=== PATIENT | male | born 1985 | race Caucasian/White ===

== ENCOUNTER 2021-01-19 16:11 | Inpatient (IN) ==
[2021-01-19] MEDS ORDERED: SODIUM CHLORIDE 0.9% 500 ML IV STA (16:29)
[2021-01-19 16:41] LABS: Basophils # (auto) 0.02 K/uL (0-0.2); Basophils % (auto) 0.1 %; Eosinophils # (auto) 0.11 K/uL (0-0.5); Eosinophils % (auto) 0.5 %; Hematocrit (blood only) 43.3 % (42-52); Hemoglobin 15.4 g/dL (14.0-18.0); Immature Granulocytes # (auto) 0.05 K/uL (0.00-0.02); Immature Granulocytes % (auto) 0.2 %; Lymphocytes # (auto) 2.77 K/uL (1.2-3.4); Lymphocytes % (auto) 12.4 %; Mean Corpuscular Hemoglobin 31.2 pg (25-34); Mean Corpuscular Hgb Conc 35.6 g/dL (32-36); Mean Corpuscular Volume 87.8 fL (80-100); Mean Platelet Volume 10.3 fL (7.4-10.4); Monocytes # (auto) 1.29 K/uL (0.11-0.59); Monocytes % (auto) 5.8 %; Neutrophils # (auto) 18.08 K/uL (1.4-6.5); Platelet Count 302 K/uL (130-400); RDW Coefficient of Variation 12.9 % (11.5-14.5); RDW Standard Deviation 41.3 fL (36.4-46.3); Red Blood Count 4.93 M/uL (4.7-6.1); White Blood Count 22.32 K/uL (4.8-10.8)
--- NOTE | 2021-01-19 16:48 | XRay Report ---
XR chest 1V portable HISTORY: weakness COMPARISON: None. FINDINGS: The lungs are clear. Cardiac silhouette is normal in size. No pleural effusions. No pneumot horax. IMPRESSION: No acute process. ACT 112: Negative or not required by law. Electronically signed by: Juancarlos Huerta M.D. 01/19/2021 4:47 PM
[2021-01-19 17:02] LABS: Alanine Aminotransferase 65 U/L (12-78); Albumin Level 4.3 gm/dl (3.4-5.0); Aspartate Aminotransferase 31 U/L (15-37); BUN Creatinine Ratio 9.4 (10-20); Blood Urea Nitrogen 8 mg/dl (7-18); Carbon Dioxide 28 mmol/L (21-32); Chloride 100 mmol/L (98-107); Est GFR (African American) 130.8 ml/min; Est GFR (Non-African American) 112.9 ml/min; Glucose 116 mg/dl (70-99); Potassium 3.3 mmol/L (3.5-5.1); Sodium 133 mmol/L (136-145)
[2021-01-19 17:12] LABS: Albumin Globulin Ratio 1.1 (0.9-2); Alkaline Phosphatase 82 U/L (45-117); Bilirubin,Total 0.9 mg/dl (0.2-1); Globulin 3.8 gm/dl (2.5-4.0); Total Protein 8.1 gm/dl (6.4-8.2); Troponin I < 0.015 ng/ml (0-0.045)
[2021-01-19] MEDS ORDERED: OPTIRAY 320 125ml IV ONE (17:24)
[2021-01-19 17:33] LABS: Creatine Kinase 138 U/L (39-308)
[2021-01-19 17:41] LABS: Appearance Urine Clear (Clear); Bilirubin Urine Negative (Negative); Blood Urine Negative (Negative); Color Urine Yellow; Glucose Urine UA Negative (Negative); Ketones Urine Trace (Negative); Leukocyte Esterase Urine Negative (Negative); Nitrite Urine Negative (Negative); Protein Urine Negative (Negative); Specific Gravity Urine 1.026 (1.000-1.030); Urobilinogen Urine Negative (Negative)
--- NOTE | 2021-01-19 17:41 | CT Scan Report ---
CHEST CTA for PULMONARY ARTERIES CT DOSE: 546.36 mGycm HISTORY: Syncope. Evaluate for pulmonary embolus. TECHNIQUE: Multiaxial CT images of the chest were performed following the intravenous administration of contrast to evaluate the pulmonary arteries. Maximal intensity projection images were also obtaine d. A dose lowering technique was utilized adhering to the principles of ALARA. COMPARISON STUDY: None. FINDINGS: There is a normal caliber thoracic aorta with no evidence for dissection. There is no evide nce for pulmonary embolus. No pleural effusions. No pneumothorax. The liver and spleen are unremarkab le. No mediastinal or hilar lymphadenopathy. Trace mucoid material within the trachea. Mild bronchial wall thickening most pronounced within the lower lobes. The lungs are clear. IMPRESSION: 1. No evidence for pulmonary embolus. 2. Mild bronchial wall thickening. This could represent a mild bronchitis or reactive airways disease . ACT 112: Negative or not required by law. Electronically signed by: Juancarlos Huerta M.D. 01/19/2021 5:39 PM
[2021-01-19 18:13] LABS: Amphetamines+Metham, Urine Neg (Neg); Barbiturates, Urine Neg (Neg); Benzodiazepine, Urine Neg (Neg); Cocaine, Urine Neg (Neg); MDMA (Ecstacy), Urine Neg (Neg); Methadone, Urine Neg (Neg); Opiate, Urine Neg (Neg); Phencyclidine, Urine Neg (Neg)
[2021-01-19] MEDS ORDERED: LABETALOL HCL IV 5 MG/ML 20ML IV STA (19:42)
[2021-01-19] MEDS ORDERED: LORazepam 2 MG/ML VIAL (IM USE) ONE (19:47)
[2021-01-19] MEDS ORDERED: LORazepam 2 MG/4 ML VIAL IV STA (19:48)
[2021-01-19] MEDS ORDERED: levETIRAcetam 1,000 MG in 0.9 % SODIUM CHLORIDE 100 ML IV STA (19:48)
--- NOTE | 2021-01-19 19:50 | History & Physical Report ---
Date of Service January 19, 2021 Assessment & Plan (1) Witnessed seizure-like activity: Plan: 35 y/o male w/ no PMHx who presents w/ new onset 4 episodes (3 witnessed) tonic- clonic seizure-like vs syncope activity today. He works outdoors in a park- setting and has risk-factors for tick-borne illness. No prior or family hx of seizure or sudden cardiac . He likely has some element of dehydration given his busy outdoors work schedule in the past 2 days. - Elevated wbc to 22.32 in setting of park job would be concerning for systemic tick-borne infection. Considered lyme and ictal bradycardia. Also considered vasovagal syncope / arrhythmia. Lower suspicion for arrhythmia. - elevated wbc less likely solely from seizure-like activity given degree of elevation. lower suspicion from hemoconcentration - Lower suspicion for meningitis w/ lack of neck pain, AMS, neg Brudzinski/Kernig exams. Lower suspicion psychogenic - Monitor on telemetry. Seizure precautions. Trend trop. Check orthostatics. Check procalc for sepsis. Check blood cultures. CK pending. - Endorses daily marijuana use. Lower suspicion for unintentional substances. - less likely hypoxic, saturating well on room air, no resp distress - Lower suspicion for chemical/environmental exposures - ordered additional 1L NSS bolus - Considered LP, but deferred given lower suspicion for meningitis; well appearing, afebrile. Waiting for prelim serum tick-borne studies - eeg in AM - stat mri now to r/o structural lesion - consult neuro in AM. Ed started Keppra load. I ordered 500 mg IV Keppra q12h and will defer to neuro regarding continuation. (2) Hypokalemia: Plan: - repleting. follow metabolic panel (3) Hyponatremia: Plan: - likely 2/2 dehydration. f/u metabolic panel in AM Plan: FEN/GI: regular diet ppx: SCDs code: full dispo: pcu Neg covid. Not covid immunizaed. History of Present Illness Chief Complaint: seizure-like activity. Primary Care Provider: NO PCP Houston Pulliam is a 35 y/o male w/ no PMHx who presents w/ new onset several episodes of syncopal vs presyncopal vs seizure-like episodes w/ tonic-clonic type activity. He works as a park/outdoors educator/guide. This morning he was kayaking and bike riding with customers in the park. After he finished the tour, he walked back to his truck and had an episode of LOC where he woke up on the floor of his truck. Patient then returned to the office and resumed his regular job duties. In the afternoon, his coworkers noted that the patient had an episode of tonic-clonic type activity and unresponsiveness, so they brought him in to the ED. In the ED waiting room ~430pm, patient had an episode of near- syncope per nursing. At 750pm, patient had a 30 second episode of witnessed tonic-clonic type activity with eyes rolled back and unresponsiveness to stimuli. Patient was not aware he had seizure-like activity and thought the 4 episodes were near-syncope. Denies prodromal or post-ictal symptoms. Patient had some fatigue earlier in the day. In the ED waiting room, he had nausea, moderate fatigue, and was noted by girlfriend to appear clammy. Patient denies recent i llness or infection. Denies tick bites. Denies prior hx of similar. No family hx of seizures. Denies any substance use. 1-3 beers at night. GF denies any withdrawal symptoms from etoh. Denies fhx sz, sudden cardiac . Work has been stressful. Denies hx of anxiety and depression. Patient was outdoors today, but states he ate breakfast and stayed hydrated. Girlfriend notes that patient has been eating fresh hot peppers several times/wk x several wks. At the time of my interview, mildly sedated s/p Keppra and Ativan and requiring mild reprompting during interview. He states that he currently feels better and essentially at baseline and no longer has the fatigue or clamminess he felt earlier. Update: 845pm: brief episode of eyes rolled back and emmanuel'd down to 40s for a few seconds, returned to normal w/ stimuli. Rhythm strip reviewed. HPI obtained from patient and girlfriend at bedside and slightly limited because of patient's slight inattention which girlfriend attributes to drowsiness after medications (Keppra and Ativan). No PCP. Drowsiness resolved on reexamination. ED course: 2mg IVP lorazepam ordered. Keppra 1000mg IV ordered. Labetalol 10 mg IV. NSS 500mL. Head CT neg for acute findings. Chest CTA neg for PE. ECG w/ NSR 92. Allergies Allergy/AdvReac Type Severity Reaction Status Date / Time No Known Allergies Allergy Unknown UNKNOWN Unverified 01/20/21 07:21 Home Medications Medication Instructions Recorded Confirmed Type melatonin 5 mg tablet 5 - 10 mg PO HS PRN 01/19/21 01/19/21 History levetiracetam 500 mg tablet 500 mg PO BID #60 tab 01/20/21 Rx Past Med/Surg History Social History Smoking Status: Former smoker Second Hand Exposure: No; Hx Alcohol Use: Yes Alcohol type: beer Hx Substance Use: Yes Last Used Substance: Days (ago) Last Used Substance Other:: Patient states "last evening" Preferred Language: Lao Communication Ability: Effective Laboratory Worker Required: No Beliefs That Will Affect Care: None Current Living Situation: Significant Other Feels Safe at Home: Yes Assistive Devices: None Review of Systems Review of Systems: All systems reviewed & are unremarkable except as noted in HPI & below Constitutional: Denies fever, chills. + mild fatigue, improve Eyes: Denies blurry vision, vision changes ENT: Denies sore throat, sinus pain Cardiovascular: Denies chest pain, palpitations Respiratory: Denies shortness of breath Gastrointestinal: Denies abdominal pain, vomiting, constipation, diarrhea Genitourinary: Denies urinary symptoms including dysuria Musculoskeletal: Denies weakness, muscle aches/pain, joint aches/pain Neurological: Denies headache, numbness, tingling, focal weakness Integ: Denies tick bites or rashes. Physical Exam Physical Exam: General: Grossly A&O. NAD. Cooperative. HEENT: Atraumatic, normocephalic. EOMI. PERRL. Nekc is supple. No pain w/ palpation of posterior neck. Oropharynx wnl. Mild R tongue edge bite nelly. Pulm: CTAB. -wheezes, -rales, -rhonchi. No respiratory distress. Cardiac: RRR, -mrg. Radial pulses intact and symmetrical. Abdominal: Nontender, nondistended, soft. Neuro: Normal finger to nose. CN II-XII intact. Normal strength and sensation of extremities. Neg Kernig/Brudzinski. Integ: Small bruise at left chand. No visible rash. Results & Data Results & Data ([facility]) Vital Signs (Past 12 Hours) Vital Signs tachy to 120s, 130s last few hours. 90s at ED arrival. BP 170s/100s at arrival, lowered to 128/96 s/p labetalol 10. Temp Pulse Pulse Resp BP BP Pulse Ox 01/19/21 17:02 96 H 18 178/102 H 100 01/19/21 17:00 97 H 20 170/92 H 95 01/19/21 16:34 95 H 16 164/104 H 98 01/19/21 16:15 36.8 C 71 16 174/92 H 97 Laboratory Results wbc 22.32H. Hb 15.4 wnl. sig neutrophilia 18.08. Na 133. K 3.3. Cr 0.85 wnl. trop neg x1. Neg liver panel. tsh wnl. Trace ketones on UA. Pos MJ on utox. final utox pending, but prelim neg. chest cta neg for PE. + mild bronchial wall thickening. cxr neg. Cardiac Enzymes 01/19/21 Range/Units 16:22 AST 31 (15-37) U/L Troponin I < 0.015 (0-0.045) ng/ml CBC 01/19/21 Range/Units 16:22 WBC 22.32 H (4.8-10.8) K/uL RBC 4.93 (4.7-6.1) M/uL Hgb 15.4 (14.0-18.0) g/dL Hct 43.3 (42-52) % Plt Count 302 (130-400) K/uL Neut # (Auto) 18.08 H (1.4-6.5) K/uL Lymph # (Auto) 2.77 (1.2-3.4) K/uL [place] # (Auto) 1.29 H (0.11-0.59) K/uL Eos # (Auto) 0.11 (0-0.5) K/uL Baso # (Auto) 0.02 (0-0.2) K/uL Comprehensive Metabolic Panel 01/19/21 Range/Units 16:22 Sodium 133 L (136-145) mmol/L Potassium 3.3 L (3.5-5.1) mmol/L Chloride 100 (98-107) mmol/L Carbon Dioxide 28 (21-32) mmol/L BUN 8 (7-18) mg/dl Creatinine 0.85 (0.6-1.4) mg/dl Glucose 116 H (70-99) mg/dl Calcium 9.0 (8.5-10.1) mg/dl AST 31 (15-37) U/L ALT 65 (12-78) U/L Alkaline Phosphatase 82 (45-117) U/L Total Protein 8.1 (6.4-8.2) gm/dl Albumin 4.3 (3.4-5.0) gm/dl Intake and Output 01/19/21 01/19/21 01/19/21 06:59 14:59 22:59 Intake Total 500 / 500 Balance 500 / 500 Intake: IV 500 / 500 Sodium Chloride 0.9% 500 ml @ 500 / 500 999 mls/hr IV .Q31M STA Rx#: [id number] Other: Weight 86.9 kg Weight Measurement Method Chair Scale Patient Weight 01/20/21 06:59 Weight 86.9 kg Diagnostic Findings Chest X-Ray 01/19/21 16:29 XR chest 1V portable HISTORY: weakness COMPARISON: None. FINDINGS: The lungs are clear. Cardiac silhouette is normal in size. No pleural effusions. No pneumothorax. IMPRESSION: No acute process. ACT 112: Negative or not required by law. Electronically signed by: Juancarlos Huerta M.D. 01/19/2021 4:47 PM Chest CTA 01/19/21 16:59 CHEST CTA for PULMONARY ARTERIES CT DOSE: 546.36 mGycm HISTORY: Syncope. Evaluate for pulmonary embolus. TECHNIQUE: Multiaxial CT images of the chest were performed following the intravenous administration of contrast to evaluate the pulmonary arteries. Maximal intensity projection images were also obtained. A dose lowering technique was utilized adhering to the principles of ALARA. COMPARISON STUDY: None. FINDINGS: There is a normal caliber thoracic aorta with no evidence for dissection. There is no evidence for pulmonary embolus. No pleural effusions. No pneumothorax. The liver and spleen are unremarkable. No mediastinal or hilar lymphadenopathy. Trace mucoid material within the trachea. Mild bronchial wall thickening most pronounced within the lower lobes. The lungs are clear. IMPRESSION: 1. No evidence for pulmonary embolus. 2. Mild bronchial wall thickening. This could represent a mild bronchitis or reactive airways disease. ACT 112: Negative or not required by law. Electronically signed by: Juancarlos Huerta M.D. 01/19/2021 5:39 PM ECG Additional Comments: Interpreted by me. NSR w/ sinus arrhythmia. Rate 89. Normal intervals and axis. Formal read pending. Possible incomplete RBBB, but morphology only partially suggestive. Code Status & VTE Plan Code Status full VTE Prophylaxis Plan VTE Prophylaxis will be ordered: Yes Reason for no VTE drug order: Treatment not indicated Supervising Physician Co-Signing Physician Notes Attending addendum: I have physically seen this patient, have supervised the medical residents activities, and agree with the H&P unless as otherwise noted. Assessment and Plan: Seizure-like activity- A total of 4 episodes noted and witnessed Telemetry mission CT head negative Order MRI brain and EEG Seizure precautions Given Keppra 1 g IV in the ED, and will continue 500 milligrams IV daily Consult neurology Mild hyponatremia/hypokalemia- IV fluids. Repeat laboratories in a.m. Remaining orders and notations as noted Resident Activity Tracking Resident Involvement: Resident Care Provided Care Provided: Adult Hospital Medicine
--- NOTE | 2021-01-19 21:05 | CT Scan Report ---
HEAD CT NONCONTRAST CT DOSE: 537.48 mGy.cm HISTORY: seizure TECHNIQUE: Multiaxial CT images of the head were performed without the use of intravenous contrast. A utomated exposure control was utilized for this study. A dose lowering technique was utilized adheri ng to the principles of ALARA. Comparison: None. Findings: The paranasal sinuses and mastoid air cells are clear. The calvarium and skull base are int act. The ventricles and sulci are within normal limits. There is no mass, hematoma, midline shift, or acute infarct. Impression: No acute intracranial abnormality. ACT 112: Negative or not required by law. Electronically signed by: Juancarlos Huerta M.D. 01/19/2021 9:04 PM
[2021-01-19] MEDS ORDERED: SODIUM CHLORIDE 0.9% 1000ML 1,000 ML IV STA (21:22)
[2021-01-19 21:39] LABS: Lyme Ab IgG w/WB Rflx Negative (Negative); Lyme Ab IgM w/WB Rflx Negative (Negative)
[2021-01-19] MEDS ORDERED: POTASSIUM CHLORIDE 20 MEQ/15 ML UDC PO STA (22:06)
[2021-01-19] MEDS ORDERED: POTASSIUM CHLORIDE 20 MEQ/15 ML UDC ONE (22:10)
[2021-01-20] MEDS ORDERED: ACETAMINOPHEN 325 MG TAB PO PRN (00:32)
[2021-01-20] MEDS ORDERED: POLYETHYLENE (MIRALAX) 17 GM PACK PO PRN (00:32)
[2021-01-20] MEDS ORDERED: ONDANSETRON INJ 2 MG/ML 2 ML VIAL IV PRN (00:32)
[2021-01-20 06:13] LABS: Basophils # (auto) 0.01 K/uL (0-0.2); Basophils % (auto) 0.1 %; Eosinophils # (auto) 0.05 K/uL (0-0.5); Eosinophils % (auto) 0.4 %; Hematocrit (blood only) 39.6 % (42-52); Hemoglobin 13.8 g/dL (14.0-18.0); Immature Granulocytes # (auto) 0.02 K/uL (0.00-0.02); Immature Granulocytes % (auto) 0.2 %; Lymphocytes # (auto) 2.29 K/uL (1.2-3.4); Lymphocytes % (auto) 20.3 %; Mean Corpuscular Hemoglobin 30.9 pg (25-34); Mean Corpuscular Hgb Conc 34.8 g/dL (32-36); Mean Corpuscular Volume 88.6 fL (80-100); Mean Platelet Volume 10.2 fL (7.4-10.4); Monocytes % (auto) 8.9 %; Neutrophils % (auto) 70.1 %; Platelet Count 242 K/uL (130-400); RDW Coefficient of Variation 12.8 % (11.5-14.5); RDW Standard Deviation 41.2 fL (36.4-46.3); Red Blood Count 4.47 M/uL (4.7-6.1); White Blood Count 11.27 K/uL (4.8-10.8)
[2021-01-20 06:34] LABS: Albumin Level 3.3 gm/dl (3.4-5.0); BUN Creatinine Ratio 5.8 (10-20); Bilirubin,Total 1.3 mg/dl (0.2-1); Calcium 8.4 mg/dl (8.5-10.1); Creatinine Clr Calc Pharmacy 156.8 ml/min; Est GFR (African American) 135.5 ml/min; Est GFR (Non-African American) 116.9 ml/min; Globulin 3.5 gm/dl (2.5-4.0); Magnesium 2.1 mg/dl (1.8-2.4); Phosphorus 2.3 mg/dl (2.5-4.9); Potassium 3.7 mmol/L (3.5-5.1); Total Protein 6.8 gm/dl (6.4-8.2)
[2021-01-20] MEDS ORDERED: POTASSIUM PHOS 3 MMOL/1 ML INFUSION IV STA (07:00)
--- NOTE | 2021-01-20 07:26 | Magnetic Resonance Report ---
MRI OF THE BRAIN WITHOUT IV CONTRAST CLINICAL HISTORY: Seizure like activity. COMPARISON STUDY: CT of the brain dated 01/19/2021. TECHNIQUE: MRI of the brain was performed utilizing various T1 and T2-weighted sequences in the axial , sagittal, and coronal planes. IV contrast was not administered for this examination. The examinatio n is performed using the seizure protocol. FINDINGS: Brain parenchyma: The brain parenchyma is normal in appearance. There is no hemorrhage or mass effect . There is no restricted diffusion to suggest acute ischemia. El-white matter differentiation is pr eserved. No extra-axial fluid collection is seen. The cerebellar tonsils are normal in configuration. The hippocampi appear normal and symmetric. Ventricles, sulci, and cisterns: Normal in configuration. Pituitary and sella: Unremarkable. Intracranial vasculature: Normal flow voids are maintained at the skull base. Orbits: The bony orbits are grossly intact. Orbital contents are normal in appearance. Sinuses and mastoids: Clear. Calvarium: Unremarkable. Cervical cord: Partially visualized cervical spinal cord is normal in morphology and signal intensity . IMPRESSION: No intracranial abnormality is identified. ACT 112: Negative or not required by law. Electronically signed by: Perry Clayton M.D. 01/20/2021 7:24 AM
[2021-01-20] MEDS ORDERED: POTASSIUM PHOSPHATE 15 MMOL in SODIUM CHLORIDE 0.9% 250 ML IV ONE (07:30)
[2021-01-20] MEDS ORDERED: levETIRAcetam 500 MG in 0.9 % SODIUM CHLORIDE 100 ML IV SCH (09:00)
--- NOTE | 2021-01-20 09:39 | Electroencephalogram ---
EEG Procedure Note Date of Service January 20, 2021 Start / End Times Start Time: 0804 End Time: 823 Referring Physician Pankaj Wang MD History 35-year-old with history of Several witnessed seizure-like activity events January 19. Home Medication List Medication Instructions Recorded Confirmed Type None (Patient States No Home Meds) #0 07/28/08 History melatonin 5 mg tablet 5 - 10 mg PO HS PRN 01/19/21 01/19/21 History Inpatient Medication List Levetiracetam 500 mg/ Sodium (Chloride) 105 mls @ 440 mls/hr IV Q12H CARINE Stop: 02/19/21 08:59 Last Infusion: 01/20/21 08:00 Dose: 0 mls/hr Documented by: [id number] Admin: 01/20/21 07:44 Dose: 440 mls/hr Documented by: [id number] Potassium Phosphate 15 mmol/ (Sodium Chloride) 255 mls @ 102 mls/hr IV ONE ONE Stop: 01/20/21 09:59 Last Admin: 01/20/21 08:29 Dose: 102 mls/hr Documented by: [id number] Discontinued Medications Sodium Chloride (Nss) 500 mls @ 999 mls/hr IV .Q31M STA Stop: 01/19/21 16:59 Last Infusion: 01/19/21 16:58 Dose: 0 mls/hr Documented by: [id number] Admin: 01/19/21 16:40 Dose: 999 mls/hr Documented by: [id number] Lorazepam (Ativan) 2 mg in 4 mls @ 4 mls/min IV NOW STA Stop: 01/19/21 19:49 Last Admin: 01/19/21 19:50 Dose: 4 mls/min Documented by: [id number] Levetiracetam 1,000 mg/ Sodium (Chloride) 110 mls @ 440 mls/hr IV NOW STA Stop: 01/19/21 20:02 Last Infusion: 01/19/21 20:55 Dose: 0 mls/hr Documented by: [id number] Admin: 01/19/21 20:40 Dose: 440 mls/hr Documented by: [id number] Sodium Chloride (Nss 1000ml) 1,000 mls @ 999 mls/hr IV .Q1H1M STA Stop: 01/19/21 22:22 Last Infusion: 01/19/21 22:43 Dose: 0 mls/hr Documented by: [id number] Admin: 01/19/21 21:27 Dose: 999 mls/hr Documented by: [id number] Ioversol (Optiray 320 125ml) 114 ml IV ONCE ONE Stop: 01/19/21 17:25 Last Admin: 01/19/21 17:25 Dose: 1 ml Documented by: [id number] Labetalol HCl (Labetalol Hcl Iv 5 Mg/Ml 20ml) 10 mg IV NOW STA Stop: 01/19/21 19:43 Last Admin: 01/19/21 20:04 Dose: Not Given Documented by: [id number] Lorazepam (Lorazepam 2 Mg/Ml Vial (Im Use)) Confirm Administered Dose 2 mg .ROUTE .STK-MED ONE Stop: 01/19/21 19:48 Last Admin: 01/19/21 19:51 Dose: Not Given Documented by: [id number] Potassium Chloride (Potassium Chloride 20 Meq/15 Ml Udc) 40 meq PO NOW STA Stop: 01/19/21 22:07 Last Admin: 01/19/21 22:17 Dose: 40 meq Documented by: [id number] Potassium Chloride (Potassium Chloride 20 Meq/15 Ml Udc) Confirm Administered Dose 40 meq .ROUTE .STK-MED ONE Stop: 01/19/21 22:11 Last Admin: 01/19/21 22:17 Dose: Not Given Documented by: [id number] Description This is a 21 electrode EEG with a single channel dedicated to limited EKG. The electrodes were placed in accordance with the International 10-20 system. Interpretation The predominant background activity consists of a somewhat irregular modulated 10 Hz activity, of up to 30 mV in amplitude,seen symmetrically distributed over the posterior head regions bilaterally. This activity attenuates nicely with eye-opening and other alerting procedures. Photic stimulation was performed and elicited no change in the background activity and no abnormal responses were seen. Hyperventilation was not performed. A considerable amount of muscle and movement artifact activity contaminated the recording and occasionally hindered interpretation from time to time throughout the recording. Throughout the waking portion of the recording, no focal abnormalities, abnormal slow activity, or potentially epileptogenic discharges are seen. The patient did not enter the drowsy state or sleep. In summary, this EEG was normal during wakefulness. No focal abnormalities, po tentially epileptogenic discharges, or abnormal slow activity was seen. Clinical Correlation The abscence of potentially epileptogenic activity does not exclude a seizure disorder, since interictally, EEGs can be normal. Clinical correlation is required. [facility] EEG Procedure Codes Indication for Procedure (1) Witnessed seizure-like activity: Neurology Neurology: [id number] EEG include record awake & drowsy
--- NOTE | 2021-01-20 09:57 | Electrocardiogram Report ---
Test Reason : Blood Pressure : / mmHG Vent. Rate : 089 BPM Atrial Rate : 089 BPM P-R Int : 116 ms QRS Dur : 098 ms QT Int : 348 ms P-R-T Axes : 070 069 048 degrees QTc Int : 423 ms Normal sinus rhythm with sinus arrhythmia Incomplete right bundle branch block Borderline ECG No previous ECGs available Confirmed by Mateus Sarmiento ([id number]) on 01/20/2021 9:57:02 AM Referred By: REFERRED SELF Confirmed By:Mateus Sarmiento
--- NOTE | 2021-01-20 10:12 | Neurology Consultation ---
Date of Consultation January 20, 2021 Assessment & Plan (1) Witnessed seizure-like activity: Patient had multiple episodes yesterday consisting of near syncope, syncope, and seizure-like activity. He had warning symptoms of feeling hot, sweaty, and lightheaded. There were concerns about bradycardia prior to 1 event last evening. MRI of the brain was unremarkable and EEG showed no abnormalities either. He had some minor electrolyte imbalances which were corrected today. I do not be lieve these were significant enough to cause primary seizures. The patient was extremely physically active over the last 48 hours and not eating or drinking well during this time ( particularly the morning of January 19). This could have created stress to trigger these events. I am not convinced these represent primary epilepsy. I am more concerned about secondary seizures from cardiovascular changes. patient uses marijuana intermittently but this is not typically associated with seizure activity. Recommendations: 1. For now, continue levetiracetam 500 mg, twice a day. 2. Consider cardiology consult. 3. Otherwise I would follow up as an outpatient and make additional recommendations pending his clinical course. Continue emphasizing increasing fluids and eating correctly as well as proper sleep. Overall, I spent a total of 60 minutes with this case including review of records, review of MRI films, did direct evaluation the patient at bedside, and discussion of the case with the patient at bedside and Dr. Basilio including differential diagnosis and treatment options. History of Present Illness Reason for Consultation: Patient is a 35-year-old, who I was asked to see the request of Dr. Wang, for neurologic consultation regarding seizure activity. Requesting Physician: Dr. Wang Attending Physician: Maddie Basilio MD History of Present Illness this patient has no significant medical or surgical issues in his past medical history and he was on no medication. He has no prior history epilepsy or previous seizures/syncope. He states that once, over 10 years ago, while in college, he was very tired /is exhausted without eating much food a particular day and had a syncopal event without seizure activity. He knows nothing further about this. 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 He was hiking and bike riding. He has not been eating well the last couple of days also. Yesterday, he spent all morning doing the physical activities for these potential commercials. by 04/03/1999, when he finished he was very tired and felt dehydrated. He walked over to his truck, 7 the seat and felt immediately very sweaty and lightheaded. He apparently woke up on the ground having banged his inside left elbow. He had something to eat and drink and then drove to the office. At the office, around 153, he was sitting and coworkers were present. He got very hot and sweaty and then lightheaded. He he apparently blacked out and was lowered to the floor. He may have stiffen for a 2nd before blacking out a colleague told him. He arrived at the emergency room January 19 at 4:15 p.m., with a temperature of 36.8, pulse 71, respiratory rate 16, blood pressure 174/92, and O2 saturation 97%. In the waiting room he was noticed to have an episode where again, he got hot and sweaty and then lightheaded nearly passing out. At 1949, while sitting he had a witnessed 30 second generalized tonic-clonic event where his eyes roll back. At 2044, he was noted to "Kvng into the 40s, and his eyes rolled back for several seconds". He was given 2 mg of IV lorazepam and 1000 mg of IV levetiracetam. He has not had any events, near syncope ease or seizure activity since. White count was 22.3 with increased neutrophils. Magnesium was normal at 2.1. Sodium was 133 and potassium 3.3. Glucose was 116. TSH and urinalysis were unremarkable. Today White count is 11.2, sodium 140, potassium 3.7, and glucose 103. He has had some sinus tachycardia since he has been in the hospital and his blood pressure is 133/80 currently. He has no complaint of headache, dizziness, weakness, or numbness. Allergies Allergy/AdvReac Type Severity Reaction Status Date / Time No Known Allergies Allergy Unknown UNKNOWN Unverified 01/20/21 07:21 Home Medications Medication Instructions Recorded Confirmed Type None (Patient States No Home Meds) #0 07/28/08 History melatonin 5 mg tablet 5 - 10 mg PO HS PRN 01/19/21 01/19/21 History Patient History Social History Smoking Status: Former smoker Second Hand Exposure: No; Do You Dip or Chew Tobacco: No; Hx Alcohol Use: Yes Alcohol type: beer Hx Substance Use: Yes Last Used Substance: Days (ago) Last Used Substance Other:: Patient states "last evening" Preferred Language: Greenlandic Communication Ability: Effective Family Court Justice Required: No Beliefs That Will Affect Care: None Current Living Situation: Significant Other Other Information That Helps Us Care for You: No Feels Safe at Home: Yes Safety Concerns: Feels Safe At This Time Assistive Devices: None Review of Systems Constitutional: no fever, no fatigue and no weakness Eyes: no diplopia, no eye pain and no worsening vision Ear, Nose, Mouth, Throat: no ear pain, no tinnitus, no hearing loss, no dizziness, no snoring, no hoarseness and no dysphagia Respiratory: no cough and no dyspnea Cardiovascular: no chest pain, no palpitations and no lightheadedness Gastrointestinal: no abdominal pain, no nausea and no vomiting Musculoskeletal: no back pain, no neck pain, no radicular pain, no joint pain and no myalgia Integumentary: no rash and no lesions Neurologic: no gait abnormality, no localized weakness, no generalized weakness, no tingling, no numbness, no tremor(s), no abnormal movements, no headache(s), no abnormal speech, no confusion and no memory loss Psychiatric: no depression, no irritability, no anxiety, no difficulty concentrating, no confusion and no hallucinations Endocrine: no fatigue and no flushing Hematologic / Lymphatic: no easy bleeding and no easy bruising Allergy / Immunological: no urticaria and no problem reported Exam (Neuro) Physical Exam: The patient is right-handed. The patient is awake, alert, and attentive. Speech is normal without any aphasia or dysarthria. The patient can name objects, repeat phrases, and has normal spontaneous speech. Mentation and thought processes are intact, with orientation to person, place and time, and normal fund of knowledge. Attention and concentration are normal. Mood and affect are normal and appropriate. General appearance and grooming are normal. Short and long-term memory are intact. Pupils are 4 mm bilaterally and reactive to light. Extraocular eye muscles are intact without nystagmus. Visual acuity and visual gilbert seem normal grossly to confrontation. There are no deficits to sensation in the face in all 3 distributions of the fifth cranial nerve bilaterally. Corneal reflexes are positive bilaterally. Facial strength and symmetry was normal bilaterally. Hearing seems normal bilaterally. Palate moves well without asymmetry. There is normal sternocleidomastoid and trapezius (shoulder shrug) strength bilaterally. Tongue is midline with good strength bilaterally. Neck has a full range of motion without discomfort. There are no cervical bruits bilaterally. There are no cranial or ocular bruits. Heart is without murmur. There is a regular rhythm and rate. Cervical, thoracic, and lumbar spine are nontender to palpation. Gait Is not tested but stance sitting up in bed is normal. With outstretched arms there is no drift. There are no resting, postural, or action tremors. There is no ataxia with finger to nose testing. There is good facility in the hands. No other abnormal involuntary movements are noted. Motor strength is 5/5 diffusely in the arms bilaterally including deltoids, biceps, triceps, brachioradialis, wrist flexors and extensors, counselor education professor, and intrinsic hand muscles. Motor strength is 5/5 diffusely in the legs bilaterally including hip flexors, quadriceps, hamstrings, gastrocnemius, tibialis anterior, tibialis posterior, and Peroneii muscles. Toe extensors are normal and there is good bulk in the extensor digitorum brevis muscles bilaterally. The limbs have good tone without rigidity or spasticity. There is no atrophy noted in the muscles. Muscle bulk is normal, there is no tenderness to palpation, no myotonia to percussion, and no fasciculations seen. Sensory examination is intact to touch and pin throughout all 4 limbs diffusely. Reflexes are 2/4 in the biceps, triceps, brachioradialis, quadriceps, and Achilles tendons bilaterally. There is no clonus bilaterally. Toes are downgoing with plantar stimulation bilaterally. Peripheral pulses are present and of normal quality distally in all 4 limbs. There is no peripheral edema noted in the limbs. Results & Data ([facility]) Vital Signs (Past 12 Hours) Vital Signs Temp Pulse Pulse Resp BP BP Pulse Ox 01/20/21 08:00 90 01/20/21 07:17 36.9 C 87 18 133/80 96 01/20/21 03:42 36.9 C 86 20 118/71 95 01/20/21 00:05 36.6 C 93 H 18 143/111 H 96 01/19/21 22:54 99 H 19 142/88 H 96 01/19/21 22:45 92 H 23 98 01/19/21 22:30 97 H 26 H 96 01/19/21 22:15 94 H 29 H 157/84 H 98 PG Care Time/CCT Total # of Minutes Spent Total Time Spent with Patient: Total time spent is greater than 50% in coordination of care (as documented) at patient's floor/unit and/or counseling patient: Coding Level of Care Code 26241 Inpt Consult Level 5 Diagnoses Witnessed seizure-like activity R56.9 Time Spent (min) 60
--- NOTE | 2021-01-20 10:31 | Electrocardiogram Report ---
Test Reason : Blood Pressure : / mmHG Vent. Rate : 092 BPM Atrial Rate : 092 BPM P-R Int : 130 ms QRS Dur : 110 ms QT Int : 360 ms P-R-T Axes : 031 062 042 degrees QTc Int : 445 ms Normal sinus rhythm Incomplete right bundle branch block Borderline ECG When compared with ECG of 19-JAN-2021 16:27, No significant change was found Confirmed by Mateus Sarmiento ([id number]) on 01/20/2021 10:31:18 AM Referred By: REFERRED SELF Confirmed By:Mateus Sarmiento
--- NOTE | 2021-01-20 11:42 | Discharge Summary ---
Date of Service January 20, 2021 Admission HPI Per Admitting Provider Houston Pollock is a 35 y/o male w/ no PMHx who presents w/ new onset several episodes of syncopal vs presyncopal vs seizure-like episodes w/ tonic-clonic type activity. He works as a park/outdoors educator/guide. This morning he was kayaking and bike riding with customers in the park. After he finished the tour, he walked back to his truck and had an episode of LOC where he woke up on the floor of his truck. Patient then returned to the office and resumed his regular job duties. In the afternoon, his coworkers noted that the patient had an episode of tonic-clonic type activity and unresponsiveness, so they brought him in to the ED. In the ED waiting room ~430pm, patient had an episode of near- syncope per nursing. At 750pm, patient had a 30 second episode of witnessed tonic-clonic type activity with eyes rolled back and unresponsiveness to stimuli. Patient was not aware he had seizure-like activity and thought the 4 episodes were near-syncope. Denies prodromal or post-ictal symptoms. Patient had some fatigue earlier in the day. In the ED waiting room, he had nausea, moderate fatigue, and was noted by girlfriend to appear clammy. Patient denies recent illness or infection. Denies tick bites. Denies prior hx of similar. No family hx of seizures. Denies any substance use. 1-3 beers at night. GF denies any withdrawal symptoms from etoh. Denies fhx sz, sudden cardiac . Work has been stressful. Denies hx of anxiety and depression. Patient was outdoors today, but states he ate breakfast and stayed hydrated. Girlfriend notes that patient has been eating fresh hot peppers several times/wk x several wks. At the time of my interview, mildly sedated s/p Keppra and Ativan and requiring mild reprompting during interview. He states that he currently feels better and essentially at baseline and no longer has the fatigue or clamminess he felt earlier. Update: 845pm: brief episode of eyes rolled back and emmanuel'd down to 40s for a few seconds, returned to normal w/ stimuli. Rhythm strip reviewed. HPI obtained from patient and girlfriend at bedside and slightly limited because of patient's slight inattention which girlfriend attributes to drowsiness after medications (Keppra and Ativan). No PCP. Drowsiness resolved on reexamination. ED course: 2mg IVP lorazepam ordered. Keppra 1000mg IV ordered. Labetalol 10 mg IV. NSS 500mL. Head CT neg for acute findings. Chest CTA neg for PE. ECG w/ NSR 92. Principal Diagnosis Seizure-like activity Discharge Exam GENERAL: A&Ox3. NAD. HEENT: PERRL, EOMI. Moist mucous membranes. NECK: No JVD. No lymphadenopathy. CHEST/LUNGS: CTAB A/P. No crackles, wheezes, rales, rhonchi. HEART: RRR. No m/g/r. No carotid bruits. ABDOMEN: NT/ND, soft. BS+ x4 EXTREMITIES: No cyanosis, no clubbing, no edema SKIN: Warm and dry. No rashes or lesions. PSYCHIATRIC: Euthymic affect, no SI, no pressured speech, no hallucinations NEUROLOGIC: No FND. CN II-XII grossly intact. Discharge Data Allergies Allergy/AdvReac Type Severity Reaction Status Date / Time No Known Allergies Allergy Unknown UNKNOWN Unverified 01/20/21 07:21 Consultations 01/19/21 19:53 ED Decision to Admit Stat 01/20/21 00:32 Consult Neurology Routine Ordered Studies 01/19/21 16:59 CT angio chest PE protocol Stat 01/19/21 19:48 CT head/brain wo con Stat 01/19/21 22:04 MR brain seizure wo con Stat Hospital Course (1) Witnessed seizure-like activity: Houston Pollock is a 35-year-old male with no significant past medical history who was admitted to [facility] for 4 episodes of seizure-like episodes, 3 of which were witnessed. Upon arrival to our hospital, patient received Keppra load of 1000 mg and was started on Keppra 500 mg twice daily thereafter. Subsequently, he had CT head, MRI brain, and EEG all of which were normal. Lab work did not show any acutely concerning findings. Neurology was consulted provider was not convinced these episodes represented primary epilepsy. Suspected that these are likely secondary seizures from cardiovascular changes. Recommendations from Neurology included continuing Keppra 500 mg twice daily, cardiology evaluation as outpatient, and follow-up with Neurology as an outpatient to make further recommendations at that time. At time of discharge patient was instructed to follow-up with PCP and discuss further cardiovascular work-up and possible cardiology referral. He expressed understanding. Medications were sent to his preferred pharmacy. Total Time Total Time Spent Total Time Spent (In Minutes): See attending attestation Discharge Plan Discharge Items Patient Disposition: Home - Self-Care Reason For Visit: SEIZURE-LIKE ACTIVITY Discharge Diagnosis: Seizure-like activity Activity: Per Instructions section Non-emergency contact: Primary Care Provider and Neurologist Call non-emergency contact if: you have any medication questions and your symptoms worsen Follow-up/Referrals: Abdi Lomax MD [Physician] - PCP,BIJAL [Primary Care Provider] - Diet: Regular Addtl Attending Provider Instructions: You were admitted to [facility] due to several witnessed episodes of loss of consciousness, which were concerning for seizures. You were started on a medication called Keppra. CT scan of your head showed no concerning findings, and a brain MRI was normal as well. You also had an EEG to evaluate your brain's electrical activity, which was normal. Neurology evaluated you and, while they cannot rule epilepsy in or out at this time, they did recommend continuing to take the Keppra 500mg twice daily. This has been sent to your preferred pharmacy at [facility] in [place]. It is recommended that you follow up with Neurology as an outpatient. Additionally, we recommend follow-up with a primary care provider to discuss other possibilities for your episodes, including ruling out cardiac causes. Please reach out to your PCP to get set up for an appointment within a week. We recommend informing them that the appointment is for hospital follow-up. Pending Studies at Discharge: Yes (Anaplasma DNA PCR & Babesiosis DNA PCR) Stand-Alone Forms: My [facility] Angiodroid, Smoking Cessation Medications and DC Order Prescriptions: New levetiracetam 500 mg tablet 500 mg PO BID Qty: 60 RF: 0 Continued melatonin 5 mg Tablet 5 - 10 mg PO HS PRN (Reason: Sleep) RF: 0 Discontinued None (Patient States No Home Meds) . Qty: 0 RF: 0 Discharge Orders: Discharge Order (Routine); Ordered 01/20/21 Ordered By: Luigi Zhou Admission Data Admit Date/Time: 01/19/21 22:04 Attending Provider: Maddie Basilio Admit Provider: Pankaj Wang Primary Care Provider: PCP,NO Other Providers: Michael Wang ; Sesar Michael Other Interventions: Discharge Summary Assessment (RN) Last Done: 01/20/21 12:03 Supervising Physician Co-Signing Physician Notes Resident Physician Supervision Note: I independently interviewed and examined the patient and verified the aguilar history and physical, reviewed labs and image studies and agree with resident Dr. Cuevas findings and care plan. Resident Activity Tracking Resident Involvement: Resident Care Provided Care Provided: Adult [facility] Medicine
--- NOTE | 2021-01-20 19:29 | Billing Data ---
Date of Service January 20, 2021 Coding Level of Care Code 22955 Initial Inpt Care Lvl 2
[2021-01-22 08:22] LABS: Marijuana Quant, GCMS Urine 838 ng/mL (<5)
--- NOTE | 2021-01-22 22:38 | Emergency Department Note ---
Impression & Plan Generalized tonic-clonic seizure, Witnessed seizure-like activity ED Provider Note CHIEF COMPLAINT: Syncope HISTORY OF PRESENT ILLNESS: This 35 yo male patient presents to the emergency department with complaints of a syncopal episode x3. The patient apparently was out kayaking all day and had very little to eat. He states he got back to the car and was alone but woke up on the ground. He does not have much recollection of that incident. He was able to make it back to his office and told his coworkers about the incident and apparently had another episode that they witnessed. The patient describes their account as "slumping in the chair." Patient does not believe these episodes lasted more than a minute. He did eat between the episodes. He does not remember any vomiting. He denies any recent headaches or visual changes. He denies chest pain, palpitations or lightheadedness. Patient denies any history of similar. He denies any substance abuse or alcohol intake in the last 24 hours. He states he has been working on a big project but feels he had adequate rest. REVIEW OF SYSTEMS: A review of systems was performed with positives and pertinent negatives listed in the history of present illness. 10 systems were reviewed and are otherwise negative. ALLERGIES: see below MEDICATIONS: see below PMH: see below SOCIAL HISTORY: see below DDx: Vasovagal event, dehydration, infection, hypoglycemia, electrolyte abnormalities, cardiac sources, intracerebral event, pulmonary embolism, seizure, toxicologic, neurologic, as well as other pathologies. PHYSICAL EXAM: Vital signs reviewed. General: Well-appearing 35 yo male, in no significant distress. HEENT: No scleral icterus, PERRLA, neck supple. Atraumatic. Cardiovascular: Regular rate and rhythm, no extra sounds. Pulmonary: Clear to auscultation bilaterally, normal work of breathing. Abdomen: Soft, nontender, nondistended, positive bowel sounds. Musculoskeletal: Atraumatic, no peripheral edema. Neurologic: Patient awake alert and oriented x 3, speech is clear Skin: Warm, dry, no rash EMERGENCY DEPARTMENT COURSE/MDM: This patient was evaluated and appeared to be in no significant distress. IV access was obtained and laboratory work was drawn. Patient was placed on a threat monitoring analyst and noted to be in a normal sinus rhythm, although with a slightly faster heart rate than I would expect. Patient was hydrated with normal saline solution. Patient's laboratory work reveals an elevated WBC. Upon my reevaluation of the patient and discussion of his laboratory work, he was noted to have a bradycardic episode. Patient proceeded to then experienced a tonic-clonic seizure. This episode lasted approximately 30 seconds and resolved without intervention. Patient was given 2 mg of IV Ativan at the tail end of the seizure and IV Keppra was ordered. CT imaging of the head was then performed and is read as below. Patient's case was discussed with the hospitalist service who will evaluate the patient for further management. Patient and his significant other at the bedside expressed u nderstanding of the plan and agreed. MONITORING: An order for cardiac monitoring was placed and the patient is noted to be in a normal sinus rhythm at 95 beats per minute. RADIOLOGY: See below EKG: Normal sinus rhythm at 92 bpm with incomplete right bundle branch block DISPOSITION: Hospitalist evaluation I have personally spent 40 minutes of critical care time in the direct management of this patient. This was a life/limb threatening event. This 40 minutes is in excess of all separately billable procedures. Past Med/Surg History Medical History Hypokalemia Hyponatremia Witnessed seizure-like activity Social History Smoking Status: Former smoker Second Hand Exposure: No; Hx Alcohol Use: Yes Alcohol type: beer Hx Substance Use: Yes Last Used Substance: Days (ago) Last Used Substance Other:: Patient states "last evening" Preferred Language: Welsh Communication Ability: Effective Coupon Manifest Clerk Required: No Beliefs That Will Affect Care: None Current Living Situation: Significant Other Feels Safe at Home: Yes Assistive Devices: None Allergies Allergies Allergy/AdvReac Type Severity Reaction Status Date / Time No Known Allergies Allergy Unknown UNKNOWN Unverified 01/20/21 07:21 Home Meds Home Medications Medication Instructions Recorded Confirmed melatonin 5 mg tablet 5 - 10 mg PO HS PRN 01/19/21 01/19/21 Previous Rx's Medication Instructions Recorded levetiracetam 500 mg tablet 500 mg PO BID #60 tab 01/20/21 Results & Data (ED) Home Medications Current Medication List: was personally reviewed by me Laboratory Data Attestation: I reviewed the patient's lab results. Result diagrams: 01/20/21 05:32 01/20/21 05:32 Lab Results 01/19/21 01/19/21 01/19/21 Range/Units 16:22 16:22 16:22 WBC 22.32 H (4.8-10.8) K/uL RBC 4.93 (4.7-6.1) M/uL Hgb 15.4 (14.0-18.0) g/dL Hct 43.3 (42-52) % MCV 87.8 (80-100) fL MCH 31.2 (25-34) pg MCHC 35.6 (32-36) g/dL RDW Std Deviation 41.3 (36.4-46.3) fL RDW Coeff of Yogesh 12.9 (11.5-14.5) % Plt Count 302 (130-400) K/uL MPV 10.3 (7.4-10.4) fL Immature Gran % (Auto) 0.2 % Neut % (Auto) 81.0 % Lymph % (Auto) 12.4 % Ventura % (Auto) 5.8 % Eos % (Auto) 0.5 % Baso % (Auto) 0.1 % Neut # (Auto) 18.08 H (1.4-6.5) K/uL Lymph # (Auto) 2.77 (1.2-3.4) K/uL Ventura # (Auto) 1.29 H (0.11-0.59) K/uL Eos # (Auto) 0.11 (0-0.5) K/uL Baso # (Auto) 0.02 (0-0.2) K/uL Immature Gran # (Auto) 0.05 H (0.00-0.02) K/uL Sodium 133 L (136-145) mmol/L Potassium 3.3 L (3.5-5.1) mmol/L Chloride 100 (98-107) mmol/L Carbon Dioxide 28 (21-32) mmol/L Anion Gap 5.0 (3-11) BUN 8 (7-18) mg/dl Creatinine 0.85 (0.6-1.4) mg/dl Est Cr Clr Drug Dosing Not Reportable Est GFR ( Amer) 130.8 ml/min Est GFR (Non-Af Amer) 112.9 ml/min BUN/Creatinine Ratio 9.4 L (10-20) Glucose 116 H (70-99) mg/dl Calcium 9.0 (8.5-10.1) mg/dl Total Bilirubin 0.9 (0.2-1) mg/dl AST 31 (15-37) U/L ALT 65 (12-78) U/L Alkaline Phosphatase 82 (45-117) U/L Total Creatine Kinase 138 (39-308) U/L Troponin I < 0.015 (0-0.045) ng/ml Total Protein 8.1 (6.4-8.2) gm/dl Albumin 4.3 (3.4-5.0) gm/dl Globulin 3.8 (2.5-4.0) gm/dl Albumin/Globulin Ratio 1.1 (0.9-2) Procalcitonin (0-0.5) ng/ml TSH 1.940 (0.300-4.500) uIu/ml Urine Color Urine Appearance (Clear) Urine pH (4.5-7.5) Ur Specific Turney (1.000-1.030) Urine Protein (Negative) Urine Glucose (UA) (Negative) Urine Ketones (Negative) Urine Blood (Negative) Urine Nitrite (Negative) Urine Bilirubin (Negative) Urine Urobilinogen (Negative) Ur Leukocyte Esterase (Negative) Urine Opiates Screen (Neg) Ur Methadone, Qual (Neg) Urine Barbiturates (Neg) Ur Phencyclidine (PCP) (Neg) U Amphetamin/Meth Scrn (Neg) MDMA (Ecstasy) Screen (Neg) U Benzodiazepines Scrn (Neg) Ur Cocaine Metabolite (Neg) U Marijuana (THC) Screen (Neg) U Marijuana THC Carboxy (<5) ng/mL Drug Screen Comment Anaplasma Smear See Comment A. phagocytophilum DNA (Negative) Babesia Smear See Comment Babesia microti DNA PCR Not Detected (Not Detected) Lyme Disease IgG Ab (Negative) Lyme Disease IgM Ab (Negative) COVID-19 Eval Order SARS-CoV-2 (PCR) (Negative) 01/19/21 01/19/21 01/19/21 Range/Units 16:22 17:30 17:30 WBC (4.8-10.8) K/uL RBC (4.7-6.1) M/uL Hgb (14.0-18.0) g/dL Hct (42-52) % MCV (80-100) fL MCH (25-34) pg MCHC (32-36) g/dL RDW Std Deviation (36.4-46.3) fL RDW Coeff of Yogesh (11.5-14.5) % Plt Count (130-400) K/uL MPV (7.4-10.4) fL Immature Gran % (Auto) % Neut % (Auto) % Lymph % (Auto) % Ventura % (Auto) % Eos % (Auto) % Baso % (Auto) % Neut # (Auto) (1.4-6.5) K/uL Lymph # (Auto) (1.2-3.4) K/uL Ventura # (Auto) (0.11-0.59) K/uL Eos # (Auto) (0-0.5) K/uL Baso # (Auto) (0-0.2) K/uL Immature Gran # (Auto) (0.00-0.02) K/uL Sodium (136-145) mmol/L Potassium (3.5-5.1) mmol/L Chloride (98-107) mmol/L Carbon Dioxide (21-32) mmol/L Anion Gap (3-11) BUN (7-18) mg/dl Creatinine (0.6-1.4) mg/dl Est Cr Clr Drug Dosing Est GFR ( Amer) ml/min Est GFR (Non-Af Amer) ml/min BUN/Creatinine Ratio (10-20) Glucose (70-99) mg/dl Calcium (8.5-10.1) mg/dl Total Bilirubin (0.2-1) mg/dl AST (15-37) U/L ALT (12-78) U/L Alkaline Phosphatase (45-117) U/L Total Creatine Kinase (39-308) U/L Troponin I (0-0.045) ng/ml Total Protein (6.4-8.2) gm/dl Albumin (3.4-5.0) gm/dl Globulin (2.5-4.0) gm/dl Albumin/Globulin Ratio (0.9-2) Procalcitonin < 0.05 (0-0.5) ng/ml TSH (0.300-4.500) uIu/ml Urine Color Yellow Urine Appearance Clear (Clear) Urine pH 7.0 (4.5-7.5) Ur Specific Turney 1.026 (1.000-1.030) Urine Protein Negative (Negative) Urine Glucose (UA) Negative (Negative) Urine Ketones Trace H (Negative) Urine Blood Negative (Negative) Urine Nitrite Negative (Negative) Urine Bilirubin Negative (Negative) Urine Urobilinogen Negative (Negative) Ur Leukocyte Esterase Negative (Negative) Urine Opiates Screen (Neg) Ur Methadone, Qual (Neg) Urine Barbiturates (Neg) Ur Phencyclidine (PCP) (Neg) U Amphetamin/Meth Scrn (Neg) MDMA (Ecstasy) Screen (Neg) U Benzodiazepines Scrn (Neg) Ur Cocaine Metabolite (Neg) U Marijuana (THC) Screen (Neg) U Marijuana THC Carboxy (<5) ng/mL Drug Screen Comment Anaplasma Smear A. phagocytophilum DNA (Negative) Babesia Smear Babesia microti DNA PCR (Not Detected) Lyme Disease IgG Ab (Negative) Lyme Disease IgM Ab (Negative) COVID-19 Eval Order Covid19 at [facility] SARS-CoV-2 (PCR) (Negative) 01/19/21 01/19/21 01/19/21 Range/Units 17:30 17:30 17:30 WBC (4.8-10.8) K/uL RBC (4.7-6.1) M/uL Hgb (14.0-18.0) g/dL Hct (42-52) % MCV (80-100) fL MCH (25-34) pg MCHC (32-36) g/dL RDW Std Deviation (36.4-46.3) fL RDW Coeff of Yogesh (11.5-14.5) % Plt Count (130-400) K/uL MPV (7.4-10.4) fL Immature Gran % (Auto) % Neut % (Auto) % Lymph % (Auto) % Ventura % (Auto) % Eos % (Auto) % Baso % (Auto) % Neut # (Auto) (1.4-6.5) K/uL Lymph # (Auto) (1.2-3.4) K/uL Ventura # (Auto) (0.11-0.59) K/uL Eos # (Auto) (0-0.5) K/uL Baso # (Auto) (0-0.2) K/uL Immature Gran # (Auto) (0.00-0.02) K/uL Sodium (136-145) mmol/L Potassium (3.5-5.1) mmol/L Chloride (98-107) mmol/L Carbon Dioxide (21-32) mmol/L Anion Gap (3-11) BUN (7-18) mg/dl Creatinine (0.6-1.4) mg/dl Est Cr Clr Drug Dosing Est GFR ( Amer) ml/min Est GFR (Non-Af Amer) ml/min BUN/Creatinine Ratio (10-20) Glucose (70-99) mg/dl Calcium (8.5-10.1) mg/dl Total Bilirubin (0.2-1) mg/dl AST (15-37) U/L ALT (12-78) U/L Alkaline Phosphatase (45-117) U/L Total Creatine Kinase (39-308) U/L Troponin I (0-0.045) ng/ml Total Protein (6.4-8.2) gm/dl Albumin (3.4-5.0) gm/dl Globulin (2.5-4.0) gm/dl Albumin/Globulin Ratio (0.9-2) Procalcitonin (0-0.5) ng/ml TSH (0.300-4.500) uIu/ml Urine Color Urine Appearance (Clear) Urine pH (4.5-7.5) Ur Specific Turney (1.000-1.030) Urine Protein (Negative) Urine Glucose (UA) (Negative) Urine Ketones (Negative) Urine Blood (Negative) Urine Nitrite (Negative) Urine Bilirubin (Negative) Urine Urobilinogen (Negative) Ur Leukocyte Esterase (Negative) Urine Opiates Screen Neg (Neg) Ur Methadone, Qual Neg (Neg) Urine Barbiturates Neg (Neg) Ur Phencyclidine (PCP) Neg (Neg) U Amphetamin/Meth Scrn Neg (Neg) MDMA (Ecstasy) Screen Neg (Neg) U Benzodiazepines Scrn Neg (Neg) Ur Cocaine Metabolite Neg (Neg) U Marijuana (THC) Screen Pos H (Neg) U Marijuana THC Carboxy 838 H (<5) ng/mL Drug Screen Comment SEE NOTE Anaplasma Smear A. phagocytophilum DNA (Negative) Babesia Smear Babesia microti DNA PCR (Not Detected) Lyme Disease IgG Ab (Negative) Lyme Disease IgM Ab (Negative) COVID-19 Eval Order SARS-CoV-2 (PCR) NEGATIVE (Negative) 01/19/21 01/19/21 Range/Units 20:38 20:38 WBC (4.8-10.8) K/uL RBC (4.7-6.1) M/uL Hgb (14.0-18.0) g/dL Hct (42-52) % MCV (80-100) fL MCH (25-34) pg MCHC (32-36) g/dL RDW Std Deviation (36.4-46.3) fL RDW Coeff of Yogesh (11.5-14.5) % Plt Count (130-400) K/uL MPV (7.4-10.4) fL Immature Gran % (Auto) % Neut % (Auto) % Lymph % (Auto) % Ventura % (Auto) % Eos % (Auto) % Baso % (Auto) % Neut # (Auto) (1.4-6.5) K/uL Lymph # (Auto) (1.2-3.4) K/uL Ventura # (Auto) (0.11-0.59) K/uL Eos # (Auto) (0-0.5) K/uL Baso # (Auto) (0-0.2) K/uL Immature Gran # (Auto) (0.00-0.02) K/uL Sodium (136-145) mmol/L Potassium (3.5-5.1) mmol/L Chloride (98-107) mmol/L Carbon Dioxide (21-32) mmol/L Anion Gap (3-11) BUN (7-18) mg/dl Creatinine (0.6-1.4) mg/dl Est Cr Clr Drug Dosing Est GFR ( Amer) ml/min Est GFR (Non-Af Amer) ml/min BUN/Creatinine Ratio (10-20) Glucose (70-99) mg/dl Calcium (8.5-10.1) mg/dl Total Bilirubin (0.2-1) mg/dl AST (15-37) U/L ALT (12-78) U/L Alkaline Phosphatase (45-117) U/L Total Creatine Kinase (39-308) U/L Troponin I (0-0.045) ng/ml Total Protein (6.4-8.2) gm/dl Albumin (3.4-5.0) gm/dl Globulin (2.5-4.0) gm/dl Albumin/Globulin Ratio (0.9-2) Procalcitonin (0-0.5) ng/ml TSH (0.300-4.500) uIu/ml Urine Color Urine Appearance (Clear) Urine pH (4.5-7.5) Ur Specific Turney (1.000-1.030) Urine Protein (Negative) Urine Glucose (UA) (Negative) Urine Ketones (Negative) Urine Blood (Negative) Urine Nitrite (Negative) Urine Bilirubin (Negative) Urine Urobilinogen (Negative) Ur Leukocyte Esterase (Negative) Urine Opiates Screen (Neg) Ur Methadone, Qual (Neg) Urine Barbiturates (Neg) Ur Phencyclidine (PCP) (Neg) U Amphetamin/Meth Scrn (Neg) MDMA (Ecstasy) Screen (Neg) U Benzodiazepines Scrn (Neg) Ur Cocaine Metabolite (Neg) U Marijuana (THC) Screen (Neg) U Marijuana THC Carboxy (<5) ng/mL Drug Screen Comment Anaplasma Smear A. phagocytophilum DNA Negative (Negative) Babesia Smear Babesia microti DNA PCR (Not Detected) Lyme Disease IgG Ab Negative (Negative) Lyme Disease IgM Ab Negative (Negative) COVID-19 Eval Order SARS-CoV-2 (PCR) (Negative) Administered Medications Discontinued Medications Sodium Chloride (Nss) 500 mls @ 999 mls/hr IV .Q31M STA Stop: 01/19/21 16:59 Last Infusion: 01/19/21 16:58 Dose: 0 mls/hr Documented by: [id number] Admin: 01/19/21 16:40 Dose: 999 mls/hr Documented by: [id number] Lorazepam (Ativan) 2 mg in 4 mls @ 4 mls/min IV NOW STA Stop: 01/19/21 19:49 Last Admin: 01/19/21 19:50 Dose: 4 mls/min Documented by: [id number] Levetiracetam 1,000 mg/ Sodium (Chloride) 110 mls @ 440 mls/hr IV NOW STA Stop: 01/19/21 20:02 Last Infusion: 01/19/21 20:55 Dose: 0 mls/hr Documented by: [id number] Admin: 01/19/21 20:40 Dose: 440 mls/hr Documented by: [id number] Sodium Chloride (Nss 1000ml) 1,000 mls @ 999 mls/hr IV .Q1H1M STA Stop: 01/19/21 22:22 Last Infusion: 01/19/21 22:43 Dose: 0 mls/hr Documented by: [id number] Admin: 01/19/21 21:27 Dose: 999 mls/hr Documented by: [id number] Levetiracetam 500 mg/ Sodium (Chloride) 105 mls @ 440 mls/hr IV Q12H CARINE Stop: 02/19/21 08:59 Last Infusion: 01/20/21 08:00 Dose: 0 mls/hr Documented by: [id number] Admin: 01/20/21 07:44 Dose: 440 mls/hr Documented by: [id number] Potassium Phosphate 15 mmol/ (Sodium Chloride) 255 mls @ 102 mls/hr IV ONE ONE Stop: 01/20/21 09:59 Last Infusion: 01/20/21 11:09 Dose: 0 mls/hr Documented by: [id number] Admin: 01/20/21 08:29 Dose: 102 mls/hr Documented by: [id number] Ioversol (Optiray 320 125ml) 114 ml IV ONCE ONE Stop: 01/19/21 17:25 Last Admin: 01/19/21 17:25 Dose: 1 ml Documented by: [id number] Labetalol HCl (Labetalol Hcl Iv 5 Mg/Ml 20ml) 10 mg IV NOW STA Stop: 01/19/21 19:43 Last Admin: 01/19/21 20:04 Dose: Not Given Documented by: [id number] Lorazepam (Lorazepam 2 Mg/Ml Vial (Im Use)) Confirm Administered Dose 2 mg .ROUTE .STK-MED ONE Stop: 01/19/21 19:48 Last Admin: 01/19/21 19:51 Dose: Not Given Documented by: [id number] Potassium Chloride (Potassium Chloride 20 Meq/15 Ml Udc) 40 meq PO NOW STA Stop: 01/19/21 22:07 Last Admin: 01/19/21 22:17 Dose: 40 meq Documented by: [id number] Potassium Chloride (Potassium Chloride 20 Meq/15 Ml Udc) Confirm Administered Dose 40 meq .ROUTE .STK-MED ONE Stop: 01/19/21 22:11 Last Admin: 01/19/21 22:17 Dose: Not Given Documented by: [id number] Discharge Plan Visit Data Chief Complaint: Syncope Stated Complaint: FAINTED TWICE IN 2 HOURS ED Provider: Camilla Doyle Discharge Problem: Generalized tonic-clonic seizure, Witnessed seizure-like activity Patient Disposition: Admitted As Inpatient Discharge Instructions Interventions: ED Discharge Assessment Last Done: 01/19/21 22:54
[2021-01-23 17:32] LABS: Babesia microti DNA Not Detected (Not Detected)
== END 2021-01-20 12:57 | disposition home or self-care (01) | DRG 101 ==
LOC: ED 16:11 → SUATTDRO 22:04 → 2S 22:04 → MERGE 22:04 → 2S 22:54

== ENCOUNTER 2022-06-15 10:20 | Inpatient (IN) ==
[2022-06-15] MEDS ORDERED: SODIUM CHLORIDE 0.9% 1000ML 1,000 ML IV SCH ×3 (11:30→19:34)
--- NOTE | 2022-06-15 11:31 | Emergency Department Note ---
History of Present Illness General Chief complaint: Illness Stated complaint: REACTION TO MEDICATION,FEVER,SKIN RED AND BLOTCHY Time Seen by Provider: 06/15/22 11:15 History of Present Illness This is a 36-year-old male that presents to the emergency department via private vehicle with complaints of "fever, rash". The patient notes that he was seen and evaluated here in the emergency department on 06/05/2022 for an infection overlying the right elbow. He notes that he was discharged home on oral cephalexin and oral sulfamethoxazole/trimethoprim. He has been compliant with this medication and is just now finishing up the antibiotics. He states that he was feeling overall well and notes improvement of the right elbow symptoms. He notes that unfortunately he awoke this morning with a fever, and a rash involving much of his face, neck and upper chest as well as upper extremities. He denies any trouble breathing. He denies any intraoral lesions or rashes. He denies any coughing or upper respiratory symptoms. He denies any rash preceding this current rash. He notes a slight headache. He feels as though the right elbow has fully healed and is doing quite well. Home Medications Medication Instructions Recorded Confirmed Type losartan 50 mg tablet 50 mg PO QAM 06/05/22 06/15/22 History Allergies Allergy/AdvReac Type Severity Reaction Status Date / Time sulfamethoxazole Allergy Rash Verified 06/15/22 17:30 [From Bactrim] trimethoprim [From Bactrim] Allergy Rash Verified 06/15/22 17:30 Past Med/Surg History Medical History HTN (hypertension) Hypokalemia Hyponatremia Witnessed seizure-like activity Surgical History No history of previous surgery Social History Smoking Status: Former smoker Second Hand Exposure: No; Hx Alcohol Use: Yes Alcohol type: beer Alcohol Intake Frequency: 2-4 x/Month Hx Substance Use: No Preferred Language: Georgian Communication Ability: Effective Director Of Oncology Required: No Beliefs That Will Affect Care: None Current Living Situation: Alone Other Information That Helps Us Care for You: No Feels Safe at Home: Yes Safety Concerns: Feels Safe At This Time Assistive Devices: Glasses Review of Systems A total of 10 systems reviewed and were otherwise negative Physical Exam Vital Signs Vital Signs - 24 hr 06/15/22 10:34 06/15/22 13:10 Temperature 38.9 C H Temperature Source Temporal Artery Scan Pulse Rate 135 H Pulse Rate [Right Finger] 115 H Pulse Rhythm Regular Pulse Strength Normal Respiratory Rate 20 16 Respiratory Effort / Characteristics Non-Labored Spontaneous Non-Labored Spontaneous Respiratory Depth Normal Normal Respiratory Pattern Regular Blood Pressure 149/94 H Blood Pressure [Right Arm] 114/72 Blood Pressure Mean 112 Blood Pressure Mean [Right Arm] 86 Blood Pressure Position Sitting Blood Pressure Position [Right Arm] Lying Pulse Oximetry 99 99 Oxygen Delivery Method Room Air Room Air Sepsis Recent Fever Within 48 Hours Yes Sepsis New/Unexplained Change in Mental Status No Sepsis Action Taken by Nursing No Action Required VITAL SIGNS - Vital signs and triage nursing notes were reviewed. Tachycardic, febrile, otherwise stable GENERAL - 36-year-old male appearing his stated age who is in no acute distress. Communicates well with provider and answers questions appropriately. SKIN - there is diffuse erythema overlying the face, neck region and anterior chest as well as upper extremities in a diffuse punctate erythematous slightly raised distribution. Negative [place] skin. No skin sloughing. No lymphangitic streaking. HEAD - NC/AT. EYES - Sclera anicteric. EARS - No deformities of external structures noted on gross examination bilaterally. NOSE - Midline and without cyanosis. No epistaxis. MOUTH/OROPHARYNX - Without perioral cyanosis. NECK - Neck with FROM. No nuchal rigidity. LUNGS - Chest wall symmetric without accessory muscle use, intercostals retractions, or central cyanosis. Normal vesicular breath sounds CTA B/L. No wheezes, rales, or rhonchi appreciated. CARDIAC - RRR with S1/S2. No murmur, rubs, or gallops appreciated. ABDOMEN - Abdominal contour normal without pulsations or visible masses. BS no rmoactive all four quadrants. No tenderness, palpable masses, hepatosplenomegaly, or ascites noted. EXTREMITIES - No clubbing or peripheral cyanosis. Full range of motion of the bilateral upper extremities without deficit. Right elbow is nontender. No edema to the right elbow. Right radial pulse intact. Cap refill of all digits of the right hand within normal limits. +5/5 strength noted in UE/LE bilaterally. NEUROLOGIC - Cranial nerves II through XII grossly intact. PSYCH - A&O, and cooperates fully with examiner. Pt is very pleasant and interacts well with examiner. Course Administered Medications Acetaminophen (Acetaminophen 325 Mg Tab) 650 mg PO Q4H PRN PRN Reason: Pain or Fever Stop: 07/15/22 19:33 Last Admin: 06/15/22 20:20 Dose: 650 mg Documented By: CONFERENCE CONCIERGE Doxycycline Hyclate (Doxycycline Hyclate 100 Mg Cap) 100 mg PO BID CARINE Stop: 06/25/22 20:59 Last Admin: 06/15/22 21:43 Dose: 100 mg Documented By: BCMercy Discontinued Medications Acetaminophen (Acetaminophen 325 Mg Tab) 650 mg PO NOW STA Stop: 06/15/22 12:58 Last Admin: 06/15/22 13:07 Dose: 650 mg Documented By: AMS Sodium Chloride (Nss 1000ml) 1,000 mls @ 999 mls/hr IV .Q1H1M CARINE Stop: 06/15/22 12:30 Last Infusion: 06/15/22 13:28 Dose: 0 mls/hr Documented By: Admin: 06/15/22 12:11 Dose: 999 mls/hr Documented By: AMS Sodium Chloride (Nss 1000ml) 1,000 mls @ 999 mls/hr IV .Q1H1M CARINE Stop: 06/15/22 14:15 Last Infusion: 06/15/22 18:14 Dose: 0 mls/hr Documented By: CONFERENCE CONCIERGE Admin: 06/15/22 13:39 Dose: 999 mls/hr Documented By: AMS Ceftriaxone Sodium 1,000 mg/ (Dextrose) 50 mls @ 100 mls/hr IV NOW STA Stop: 06/15/22 14:39 Last Infusion: 06/15/22 15:05 Dose: 0 mls/hr Documented By: CONFERENCE CONCIERGE Admin: 06/15/22 14:26 Dose: 100 mls/hr Documented By: AMS Sodium Chloride (Nss 1000ml) 1,000 mls @ 125 mls/hr IV .Q8H CARINE Stop: 06/16/22 03:33 Last Admin: 06/15/22 21:54 Dose: 125 mls/hr Documented By: MADELINE Famotidine 20 mg/ Syringe 5 mls @ 2.5 mls/min IV NOW ONE Stop: 06/15/22 20:46 Last Admin: 06/15/22 21:43 Dose: 2.5 mls/min Documented By: MADELINE Methylprednisolone 60 mg/ (Syringe) 0.96 mls @ 1.5 mls/min IV NOW STA Stop: 06/15/22 20:42 Last Admin: 06/15/22 21:44 Dose: 1.5 mls/min Documented By: MADELINE Medical Decision Making Laboratory Data 06/15/22 11:38 06/15/22 11:38 Lab Results 06/15/22 06/15/22 06/15/22 Range/Units 11:38 11:38 11:38 WBC 6.67 (4.8-10.8) K/ul RBC 5.10 (4.70-6.10) M/uL Hgb 16.1 (14.0-18.0) g/dl Hct 44.8 (42.0-52.0) % MCV 87.8 (80.0-100.0) fL MCH 31.6 (25.0-34.0) pg MCHC 35.9 (32.0-36.0) g/dL RDW Std Deviation 38.6 (36.4-46.3) fL RDW Coeff of Yogesh 11.9 (11.5-14.5) % Plt Count 253 (130-400) K/uL MPV 9.8 (9.4-12.4) fL Immature Gran % (Auto) 0.4 % Neut % (Auto) 74.4 % Lymph % (Auto) 10.9 % [place] % (Auto) 7.2 % Eos % (Auto) 7.0 % Baso % (Auto) 0.1 % Neut # (Auto) 4.95 (1.40-6.50) K/uL Lymph # (Auto) 0.73 L (1.2-3.4) K/uL [place] # (Auto) 0.48 (0.11-0.59) K/uL Eos # (Auto) 0.47 (0-0.50) K/uL Baso # (Auto) 0.01 (0-0.2) K/uL Immature Gran # (Auto) 0.03 (0.01-0.20) K/uL Sodium 131 L (136-145) mmol/L Potassium 4.2 (3.5-5.1) mmol/L Chloride 97 L (98-107) mmol/L Carbon Dioxide 23 (21-32) mmol/L Anion Gap 11 (3-11) BUN 10 (6-23) mg/dl Creatinine 0.90 (0.6-1.4) mg/dl Est Cr Clr Drug Dosing 120.9 ml/min Est GFR ( Amer) 126.9 ml/min Est GFR (Non-Af Amer) 109.5 ml/min BUN/Creatinine Ratio 11.1 (10-20) Glucose 102 H (70-99(Fasting)) mg/dl Lactate 1.5 (0.4-2.0) mmol/L Calcium 9.1 (8.5-10.1) mg/dl Total Bilirubin 1.0 (0.2-1.0) mg/dl AST 37 (13-39) U/L ALT 47 (7-52) U/L Alkaline Phosphatase 73 (34-104) U/L Total Protein 7.9 (6.0-8.3) gm/dl Albumin 4.6 (3.4-5.0) gm/dl Globulin 3.3 (2.5-4.0) gm/dl Albumin/Globulin Ratio 1.4 (0.9-2) Procalcitonin (0-0.5) ng/ml Urine Color Urine Appearance (Clear) Urine pH (4.5-7.5) Ur Specific [place] (1.000-1.030) Urine Protein (Negative) Urine Glucose (UA) (Negative) Urine Ketones (Negative) Urine Blood (Negative) Urine Nitrite (Negative) Urine Bilirubin (Negative) Urine Urobilinogen (Negative) Ur Leukocyte Esterase (Negative) Adenovirus (PCR) (NotDetected) B. pertussis DNA (PCR) (NotDetected) B.parapertussis DNA PCR (NotDetected) C. pneumoniae DNA (PCR) (NotDetected) Coronavirus OC43 (PCR) (NotDetected) Coronavirus HKU1 (PCR) (NotDetected) Coronavirus 229E (PCR) (NotDetected) SARS-CoV-2 (PCR) (NotDetected) Coronavirus NL63 (PCR) (NotDetected) Human Metapneumovir PCR (NotDetected) Influenza Type A (PCR) (NotDetected) Influenza Type B (PCR) (NotDetected) M. pneumoniae (PCR) (NotDetected) Parainfluenza 1 (PCR) (NotDetected) Parainfluenza 2 (PCR) (NotDetected) Parainfluenza 3 (PCR) (NotDetected) Parainfluenza 4 (PCR) (NotDetected) RSV (PCR) (NotDetected) Entero/Rhino (PCR) (NotDetected) 06/15/22 06/15/22 06/15/22 Range/Units 11:38 12:20 12:45 WBC (4.8-10.8) K/ul RBC (4.70-6.10) M/uL Hgb (14.0-18.0) g/dl Hct (42.0-52.0) % MCV (80.0-100.0) fL MCH (25.0-34.0) pg MCHC (32.0-36.0) g/dL RDW Std Deviation (36.4-46.3) fL RDW Coeff of Yogesh (11.5-14.5) % Plt Count (130-400) K/uL MPV (9.4-12.4) fL Immature Gran % (Auto) % Neut % (Auto) % Lymph % (Auto) % [place] % (Auto) % Eos % (Auto) % Baso % (Auto) % Neut # (Auto) (1.40-6.50) K/uL Lymph # (Auto) (1.2-3.4) K/uL [place] # (Auto) (0.11-0.59) K/uL Eos # (Auto) (0-0.50) K/uL Baso # (Auto) (0-0.2) K/uL Immature Gran # (Auto) (0.01-0.20) K/uL Sodium (136-145) mmol/L Potassium (3.5-5.1) mmol/L Chloride (98-107) mmol/L Carbon Dioxide (21-32) mmol/L Anion Gap (3-11) BUN (6-23) mg/dl Creatinine (0.6-1.4) mg/dl Est Cr Clr Drug Dosing ml/min Est GFR ( Amer) ml/min Est GFR (Non-Af Amer) ml/min BUN/Creatinine Ratio (10-20) Glucose (70-99(Fasting)) mg/dl Lactate (0.4-2.0) mmol/L Calcium (8.5-10.1) mg/dl Total Bilirubin (0.2-1.0) mg/dl AST (13-39) U/L ALT (7-52) U/L Alkaline Phosphatase (34-104) U/L Total Protein (6.0-8.3) gm/dl Albumin (3.4-5.0) gm/dl Globulin (2.5-4.0) gm/dl Albumin/Globulin Ratio (0.9-2) Procalcitonin 0.31 (0-0.5) ng/ml Urine Color Yellow Urine Appearance Clear (Clear) Urine pH 6.0 (4.5-7.5) Ur Specific [place] 1.018 (1.000-1.030) Urine Protein Negative (Negative) Urine Glucose (UA) Negative (Negative) Urine Ketones 3+ H (Negative) Urine Blood Negative (Negative) Urine Nitrite Negative (Negative) Urine Bilirubin Negative (Negative) Urine Urobilinogen Negative (Negative) Ur Leukocyte Esterase Negative (Negative) Adenovirus (PCR) Not Detected (NotDetected) B. pertussis DNA (PCR) Not Detected (NotDetected) B.parapertussis DNA PCR Not Detected (NotDetected) C. pneumoniae DNA (PCR) Not Detected (NotDetected) Coronavirus OC43 (PCR) Not Detected (NotDetected) Coronavirus HKU1 (PCR) Not Detected (NotDetected) Coronavirus 229E (PCR) Not Detected (NotDetected) SARS-CoV-2 (PCR) Not Detected (NotDetected) Coronavirus NL63 (PCR) Not Detected (NotDetected) Human Metapneumovir PCR Not Detected (NotDetected) Influenza Type A (PCR) Not Detected (NotDetected) Influenza Type B (PCR) Not Detected (NotDetected) M. pneumoniae (PCR) Not Detected (NotDetected) Parainfluenza 1 (PCR) Not Detected (NotDetected) Parainfluenza 2 (PCR) Not Detected (NotDetected) Parainfluenza 3 (PCR) Not Detected (NotDetected) Parainfluenza 4 (PCR) Not Detected (NotDetected) RSV (PCR) Not Detected (NotDetected) Entero/Rhino (PCR) Not Detected (NotDetected) Imaging Data Radiologist's Impression: Chest X-Ray 06/15/22 11:32 XR chest 1V portable HISTORY: fever COMPARISON: Chest 01/19/2021. FINDINGS: The lungs are clear. Cardiac silhouette is normal in size. No pleural effusions. No pneumothorax. IMPRESSION: No acute process. ACT 112: Negative or not required by law. Electronically signed by: Juancarlos Huerta M.D. 06/15/2022 1:15 PM MDM Narrative Patient was seen and evaluated as above in room C11. Review was performed of triage nursing notes and vital signs. I did review pertinent previous visits and patient history. After obtaining a thorough history and physical examination the above work up was performed. Patient presents to us today at the conclusion of his oral antibiotic therapy for right elbow cellulitis that he was seen here for earlier this month. Patient is tachycardic on arrival, febrile and has a diffuse erythematous rash overlying the face, neck, chest and upper extremities. Options of care were discussed with the patient, IV access was established and labs were drawn. There is no leukocytosis or concerning anemia. Mild hyponatremia 131. There is no evidence of kidney or liver failure. Procalcitonin is within normal range but detectable at 0.31. Urinalysis does not suggest infection. Upper respiratory panel is negative. Chest x-ray is negative. The patient's rash may be a drug eruption versus infectious etiology. No bull's-eye appearance. Patient was medicated with 2 L of normal saline as he clinically was dry and dehydrated on examination. He was empirically covered with IV ceftriaxone for suspected potential bacterial ideology. He was also medicated here with oral acetaminophen for his fever. the patient does not have any evidence of septic arthritis clinically. Blood cultures pending. At this time with the patient's febrile state, tachycardic state in the setting of recent cellulitic infection to the right elbow just now finishing antibiotic therapy I do believe that further evaluation and management in the inpatient setting is warranted. Patient amenable to plan of care. Case discussed with the hospitalist service. Please refer to further documentation regarding his stay. In the evaluation and treatment of this patient the following differential diagnoses were entertained: cellulitis, abscess, SJS, TENS, drug eruption, Lyme disease, anaplasmosis, allergic reaction, among others. Impression & Plan Fever, Maculopapular rash, Tachycardia Discharge Plan Visit Data Chief Complaint: Illness Stated Complaint: REACTION TO MEDICATION,FEVER,SKIN RED AND BLOTCHY ED Provider: Ariel Weaver ED Midlevel Provider: Marcos Chambers Discharge Problem: Fever, Maculopapular rash, Tachycardia Patient Disposition: Admitted As Inpatient Condition: Good Discharge Instructions Interventions: ED Discharge Assessment Last Done: 06/15/22 19:34
[2022-06-15 12:17] LABS: Basophils # (auto) 0.01 K/uL (0-0.2); Basophils % (auto) 0.1 %; Eosinophils # (auto) 0.47 K/uL (0-0.50); Hematocrit (blood only) 44.8 % (42.0-52.0); Hemoglobin 16.1 g/dl (14.0-18.0); Immature Granulocytes # (auto) 0.03 K/uL (0.01-0.20); Immature Granulocytes % (auto) 0.4 %; Lymphocytes # (auto) 0.73 K/uL (1.2-3.4); Lymphocytes % (auto) 10.9 %; Mean Corpuscular Hemoglobin 31.6 pg (25.0-34.0); Mean Corpuscular Hgb Conc 35.9 g/dL (32.0-36.0); Mean Corpuscular Volume 87.8 fL (80.0-100.0); Mean Platelet Volume 9.8 fL (9.4-12.4); Monocytes # (auto) 0.48 K/uL (0.11-0.59); Monocytes % (auto) 7.2 %; Neutrophils # (auto) 4.95 K/uL (1.40-6.50); Neutrophils % (auto) 74.4 %; Platelet Count 253 K/uL (130-400); RDW Coefficient of Variation 11.9 % (11.5-14.5); RDW Standard Deviation 38.6 fL (36.4-46.3); White Blood Count 6.67 K/ul (4.8-10.8)
[2022-06-15 12:25] LABS: Albumin Globulin Ratio 1.4 (0.9-2); Albumin Level 4.6 gm/dl (3.4-5.0); BUN Creatinine Ratio 11.1 (10-20); Calcium 9.1 mg/dl (8.5-10.1); Creatinine Clr Calc Pharmacy 120.9 ml/min; Est GFR (African American) 126.9 ml/min; Est GFR (Non-African American) 109.5 ml/min; Globulin 3.3 gm/dl (2.5-4.0); Potassium 4.2 mmol/L (3.5-5.1); Total Protein 7.9 gm/dl (6.0-8.3)
[2022-06-15] MEDS ORDERED: ACETAMINOPHEN 325 MG TAB PO STA (12:57)
[2022-06-15 13:00] LABS: Appearance Urine Clear (Clear); Bilirubin Urine Negative (Negative); Blood Urine Negative (Negative); Color Urine Yellow; Glucose Urine UA Negative (Negative); Ketones Urine 3+ (Negative); Leukocyte Esterase Urine Negative (Negative); Nitrite Urine Negative (Negative); Protein Urine Negative (Negative); Specific Gravity Urine 1.018 (1.000-1.030); Urobilinogen Urine Negative (Negative)
--- NOTE | 2022-06-15 13:17 | XRay Report ---
XR chest 1V portable HISTORY: fever COMPARISON: Chest 01/19/2021. FINDINGS: The lungs are clear. Cardiac silhouette is normal in size. No pleural effusions. No pneumot horax. IMPRESSION: No acute process. ACT 112: Negative or not required by law. Electronically signed by: Juancarlos Huerta M.D. 06/15/2022 1:15 PM
[2022-06-15] MEDS ORDERED: cefTRIAXone SODIUM 1,000 MG in DEXTROSE 5% AD-VAN 50 ML IV STA (14:10)
[2022-06-15 14:26] LABS: Adenovirus PCR Not Detected (NotDetected); Bordetella parapertussis PCR Not Detected (NotDetected); Bordetella pertussis PCR Not Detected (NotDetected); Chlamydia pneumoniae PCR Not Detected (NotDetected); Coronavirus 229E PCR Not Detected (NotDetected); Coronavirus CoV-2 (COVID19)PCR Not Detected (NotDetected); Coronavirus HKU1 PCR Not Detected (NotDetected); Coronavirus NL63 PCR Not Detected (NotDetected); Coronavirus OC43PCR Not Detected (NotDetected); Human Metapneumovirus PCR Not Detected (NotDetected); Influenza A PCR Not Detected (NotDetected); Influenza B PCR Not Detected (NotDetected); Mycoplasma pneumoniae PCR Not Detected (NotDetected); Parainfluenza Virus 1 PCR Not Detected (NotDetected); Parainfluenza Virus 2 PCR Not Detected (NotDetected); Parainfluenza Virus 3 PCR Not Detected (NotDetected); Parainfluenza Virus 4 PCR Not Detected (NotDetected); Respiratory Syncytial VirusPCR Not Detected (NotDetected); Rhinovirus/Enterovirus PCR Not Detected (NotDetected)
--- NOTE | 2022-06-15 16:00 | History & Physical Report ---
Date of Service June 15, 2022 Assessment & Plan (1) Maculopapular rash: (2) Drug eruption: Plan: Patient is 36-year-old male with PMH hypertension presented to ER with c/o nonpruritic, nonpainful rash today. On Keflex and Bactrim for right elbow cellulitis. Today is day 10 of antibiotics. Clinically rash appears consistent with drug eruption likely secondary to Bactrim. Does not appear like SJS. No urticaria or anaphylaxis In ER patient received Rocephin. No worsening of rash noted Hold Bactrim Will place Bactrim on allergy list Monitor, if worsening may need to consider dermatology consult (3) Fever: Plan: Fever started today In ER T: 38.9 C, P: 135, R: 20, BP: 149/94, 99% on room air ? Fever secondary to drug eruption versus underlying infection No leukocytosis, lactate: 1.5, procalcitonin: 0.3. Negative respiratory panel, negative UA CXR: No acute infiltrate Blood cultures pending Recent right elbow cellulitis/bursitis treated with Keflex and Bactrim x10 days with resolution of symptoms. No further edema, tenderness, erythema to right elbow or forearm. We will hold on further imaging at this time In ER given Rocephin, 2L NSS, acetaminophen. Repeat T: 37.3C Will continue Rocephin for now to complete course IVF CBC, BMP in a.m. (4) HTN (hypertension): Plan: Continue losartan (5) Hyponatremia: Plan: Na: 131 Monitor BMP in a.m. DVT Prophylaxis SCDs, ambulate Follows with Dr Noble for routine care Pt was seen and care coordinated with Dr Bruner. See addendum I spent a total of 65 minutes reviewing notes, outpatient records, labs, medication, coordinating, documenting and providing care for this patient excluding time spent in the performance of separately billed services. History of Present Illness Chief Complaint: Rash Primary Care Provider: Floridalma Noble DO Patient is 36-year-old male with PMH hypertension presented to ER with c/o rash today. Seen in ER 06/05/2022 for right elbow redness and swelling. There was consideration for septic joint and considered arthrocentesis however patient deferred at the time. Patient was treated with Keflex and Bactrim. Today is last day of the course. He states approximately 2 days after taking antibiotics had significant improvement of right elbow swelling and redness. He reports redness had extended down his entire forearm which had started to clear. He reports complete resolution of erythema and edema. No longer has elbow discomfort and is able to fully flex and extend elbow without pain. States initially was checking his temperatures during the initial course of antibiotics but has since stopped. Yesterday started to feel ill with decreased appetite and a little lethargy. This morning woke up feeling warm and he noticed a diffuse rash to neck chest and back, bilateral upper and lower extremities. Denies any pruritus or pain to rash. Denies any blisters. Denies diaphoresis, N/V/D/C, RAMIREZ, dizziness, syncope, vision changes, neck pain, CP, SOB, orthopnea, palpitations, cough, sore throat, choking, lip or tongue edema, dysphagia, otalgia, rhinorrhea, abdominal pain, paresthesias, weakness, extremity weakness, extremity edema, rashes, urinary symptoms. Allergies Allergy/AdvReac Type Severity Reaction Status Date / Time sulfamethoxazole Allergy Rash Verified 06/15/22 17:30 [From Bactrim] trimethoprim [From Bactrim] Allergy Rash Verified 06/15/22 17:30 Home Medications Medication Instructions Recorded Confirmed Type losartan 50 mg tablet 50 mg PO QAM 06/05/22 06/15/22 History Past Med/Surg History Medical History HTN (hypertension) Hypokalemia Hyponatremia Witnessed seizure-like activity Surgical History No history of previous surgery Social History Smoking Status: Never smoker Second Hand Exposure: No; Hx Alcohol Use: Yes Alcohol type: beer Alcohol Intake Frequency: 2-4 x/Month Hx Substance Use: No Preferred Language: [place] Islander Communication Ability: Effective Ash Collector Required: No Beliefs That Will Affect Care: None Current Living Situation: Significant Other Feels Safe at Home: Yes Assistive Devices: None Review of Systems Review of Systems: All systems reviewed & are unremarkable except as noted in HPI & below Physical Exam Physical Exam: General: no distress, WDWN Head: normocephalic, atraumatic Eyes: PERRL, EOM's intact, conjunctiva non-injected, anicteric ENT: normal inspection external ears, nose, mucous membranes moist, no rash to oropharynx noted, no uvula edema no tongue edema no lip edema Neck: supple, trachea midline Lungs: clear, no respiratory distress, no wheezing/rhonchi/rales CV: RRR, no murmur, no pretibial edema Abd: normal BS, soft, non-tender Ext: no cyanosis, no calf tenderness; RUE: Posterior elbow with faint edema over olecranon process, no warmth, no tenderness to palpation, full range of motion without reproduce tenderness Neuro: A&O x 3, no focal deficits noted, normal affect Skin: + Diffuse erythematous macular papular rash neck, chest, abdomen, back, bilateral upper and lower extremities, no rash noted to palms of hands or soles of feet, warm, dry. No bullous lesions. Results & Data Results & Data Vital Signs (Past 12 Hours) Vital Signs Temp Pulse Pulse Resp BP BP Pulse Ox 06/15/22 13:10 115 H 16 114/72 99 06/15/22 10:34 38.9 C H 135 H 20 149/94 H 99 O2 Del Method 06/15/22 13:10 Room Air 06/15/22 10:34 Room Air Laboratory Results Short CBC 06/15/22 Range/Units 11:38 WBC 6.67 (4.8-10.8) K/ul Hgb 16.1 (14.0-18.0) g/dl Hct 44.8 (42.0-52.0) % Plt Count 253 (130-400) K/uL BMP 06/15/22 11:38 Sodium 131 L Potassium 4.2 Chloride 97 L Carbon Dioxide 23 BUN 10 Creatinine 0.90 Glucose 102 H Calcium 9.1 Liver Function 06/15/22 Range/Units 11:38 Total Bilirubin 1.0 (0.2-1.0) mg/dl AST 37 (13-39) U/L ALT 47 (7-52) U/L Alkaline Phosphatase 73 (34-104) U/L Albumin 4.6 (3.4-5.0) gm/dl Urine 06/15/22 Range/Units 12:45 Urine Color Yellow Urine Appearance Clear (Clear) Urine pH 6.0 (4.5-7.5) Ur Specific [place] 1.018 (1.000-1.030) Urine Protein Negative (Negative) Urine Glucose (UA) Negative (Negative) Diagnostic Findings Chest X-Ray 06/15/22 11:32 XR chest 1V portable HISTORY: fever COMPARISON: Chest 01/19/2021. FINDINGS: The lungs are clear. Cardiac silhouette is normal in size. No pleural effusions. No pneumothorax. IMPRESSION: No acute process. ACT 112: Negative or not required by law. Electronically signed by: Juancarlos Huerta M.D. 06/15/2022 1:15 PM Supervising Physician Co-Signing Physician Notes 36-year-old male with PMH of HTN who was recently treated for likely septic olecranon bursitis [no pain at movement at elbow at that time] and was discharged on Bactrim and Keflex from the ED about 10 days ago. Patient completed his last dose of Bactrim yesterday evening and was taking his Keflex until prior to arrival to ED today. Patient reports feeling not very well since last evening, was febrile in the morning at 101 F, when taking shower he noticed red rash all over his body. He denies any itchiness or pain. At bedside exam, patient reports in fact improving his rashes significantly. He had also received Rocephin in the ED by the time of my bedside exam. Patient denies any headache or dizziness or chest pain or wheezing or abdominal pain or palpitation. It appears that it might be exanthematous drug reaction to Bactrim as patient was taking his Keflex today and also received Rocephin and still reported improvement in his rash overall during my bedside exam in the late afternoon today. No vesicles or bulla noted and hence no concern for SJS. No rashes over the palms and no mucosal involvement. Will hold onto consult to die presser at this point. May consider follow-up with die presser as an outpatient. 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 Also procalcitonin was negative. Viral panel was negative. Hence the fever likely could be secondary to drug reaction. Pro-Scooby in a.m. for trend. --->>>>later in the evening noted another fever again, since the patient received rocephin in the day, will now stop rocephin as well - the rash could be from any of them cephlosporins vs bactrim. Will need to consider consulting dermatology if with worsening rash. Will use solumedrol 60 mg iv and famotidine one time doses and follow up in AM. With regard to olecranon bursitis/cellulitis (completed 10 day course of Atb), there is no pain or tenderness, redness is noted over the bursa but also the redness is all over the body. Once the drug reaction improves and we might be able to better examine the bursa for any overlying cellulitis. On examination: GENERAL: Alert and oriented x3. NAD, on RA. HEENT: No pallor, no icterus. Pupils equal, round and reactive to light. Oral mucosa moist. NECK: No JVD, no neck masses. HEART: S1 and S2 heard. Regular rate and rhythm/tachycardia in the 90s. No murmur, no gallop. RESPIRATORY SYSTEM: Normal AP diameter. No accessory muscle use. No wheezing, no crackles. ABDOMEN: Soft, bowel sounds present, nontender, no distention. CENTRAL NERVOUS SYSTEM: No facial droop. Speech is clear. Obeys simple commands. Moves extremities. EXTREMITIES: No edema, no erythema seen. Skin: Maculopapular rash all over the body including face/front and back of the chest/abdomen/bilateral lower extremities. No scratch [place]ar or excoriations noted. I have seen and examined the patient and have discussed the case with the provider above. I agree with the assessment and plan as stated.
[2022-06-15 18:03] LABS: Lyme Ab IgG w/WB Rflx Negative (Negative)
[2022-06-15 18:15] LABS: Lyme Ab IgM w/WB Rflx Positive (Negative)
[2022-06-15] MEDS ORDERED: POLYETHYLENE (MIRALAX) 17 GM PACK PO PRN (19:34)
[2022-06-15] MEDS ORDERED: ONDANSETRON INJ 2 MG/ML 2 ML VIAL IV PRN (19:34)
[2022-06-15] MEDS ORDERED: ACETAMINOPHEN 325 MG TAB PO PRN (19:34)
[2022-06-15] MEDS ORDERED: diphenhydrAMINE Capsule 25 MG CAP PO PRN (20:20)
[2022-06-15] MEDS ORDERED: methylPREDNISolone 60 MG in SYRINGE 0 ML IV STA (20:41)
[2022-06-15] MEDS ORDERED: FAMOTIDINE 20 MG in SYRINGE 3 ML IV ONE (20:45)
[2022-06-15] MEDS: DOXYCYCLINE HYCLATE 100 MG CAP PO SCH (21:43)
[2022-06-16 07:24] LABS: Hematocrit (blood only) 37.9 % (42.0-52.0); Hemoglobin 13.4 g/dl (14.0-18.0); Mean Corpuscular Hemoglobin 31.1 pg (25.0-34.0); Mean Corpuscular Hgb Conc 35.4 g/dL (32.0-36.0); Mean Corpuscular Volume 87.9 fL (80.0-100.0); Mean Platelet Volume 9.7 fL (9.4-12.4); Platelet Count 220 K/uL (130-400); RDW Coefficient of Variation 11.9 % (11.5-14.5); RDW Standard Deviation 38.9 fL (36.4-46.3); Red Blood Count 4.31 M/uL (4.70-6.10); White Blood Count 2.41 K/ul (4.8-10.8)
[2022-06-16 07:48] LABS: Basophils # (auto) 0.02 K/uL (0-0.2); Basophils % (auto) 0.8 %; Eosinophils # (auto) 0.01 K/uL (0-0.50); Eosinophils % (auto) 0.4 %; Immature Granulocytes # (auto) 0.01 K/uL (0.01-0.20); Immature Granulocytes % (auto) 0.4 %; Lymphocytes # (auto) 0.52 K/uL (1.2-3.4); Lymphocytes % (auto) 21.6 %; Monocytes # (auto) 0.17 K/uL (0.11-0.59); Monocytes % (auto) 7.1 %; Neutrophils # (auto) 1.68 K/uL (1.40-6.50); Neutrophils % (auto) 69.7 %; RBC Morphology Unremarkable
[2022-06-16 07:50] LABS: BUN Creatinine Ratio 5.9 (10-20); Calcium 7.7 mg/dl (8.5-10.1); Est GFR (African American) 142.4 ml/min; Est GFR (Non-African American) 122.9 ml/min; Potassium 3.6 mmol/L (3.5-5.1)
[2022-06-16] MEDS ORDERED: cefTRIAXone SODIUM 2,000 MG in DEXTROSE 5% 50 ML IV SCH (09:00)
[2022-06-16] MEDS: DOXYCYCLINE HYCLATE 100 MG CAP PO SCH ×2 (09:16→20:00)
[2022-06-16] MEDS: LOSARTAN POTASSIUM 50 MG TAB PO SCH (09:16)
--- NOTE | 2022-06-16 12:04 | Hospitalist Progress Note ---
Date of Service June 16, 2022 Assessment & Plan (1) Maculopapular rash: (2) Drug eruption: Plan: Recent history of right arm cellulitis; was prescribed Bactrim and Keflex. Developed maculopapular rash; nonpruritic. No mucosal involvement. Hold Bactrim; placed on allergy list. Continue to monitor (3) Fever: (4) Lyme disease: Plan: Febrile in the ED with Tmax of 38.9 C. No leukocytosis, negative Pro-Scooby, negative respiratory viral panel Chest x-rayno infiltrate Lyme IgM positive; confirmatory test awaited. Denies any recent history of tick bite. He constantly works towards. Blood culture pending Continue on doxycycline for now until confirmation test is available. We will follow-up on blood culture. (5) HTN (hypertension): Plan: Continue losartan (6) Hyponatremia: Plan: Na: 131 on admission; improved to 137 today. Full code SCDs Dispositionfrom home; will await blood culture results. Plan to DC in a.m. if improvement in rash and if infectious work-up negative. Admission and Anticipated Discharge Date Admission Date: June 15, 2022 Subjective Patient seen and examined at bedside. He reports that rash has significantly improved compared to admission. Tmax of 38.9 C since admission. Review of Systems Review of Systems: All systems reviewed & are unremarkable except as noted in Subjective Physical Exam Physical Exam: Constitutional: WD/WN, vitals as above, NAD, sitting up in bed, pleasant, conversing easily Respiratory: normal respiratory effort, lungs clear to auscultation, no wheeze, rales, rhonchi. Normal insp/exp effort, no accessory muscle use Cardiovascular: RRR, no murmur, no edema Vessels: no JVD or carotid bruit Chest: normal inspection of chest Abdomen: normal bowel sounds, soft, nontender, no hepatosplenomegaly Musculoskeletal: no cyanosis or clubbing, extremities motor strength 5/5 Skin: Diffuse maculopapular rash present neck, chest, abdomen, back and b/l upper and lower extremities. Neurologic: PERRL, EOMI, accommodation nl, no face palsy, no dysarthria CN's II- XI intact bilaterally and moves all extremities Psychiatric: A+Ox3, euthymic affect Lymphatic: no cervical or axillary lymphadenopathy : deferred Results & Data Results & Data Vital Signs (Past 12 Hours) Vital Signs Temp Pulse Resp BP BP Pulse Ox O2 Del Method 06/16/22 10:58 37.0 C 92 H 18 150/92 H 99 Room Air 06/16/22 07:40 36.9 C 97 H 18 131/84 96 Room Air 06/16/22 03:05 37.0 C 94 H 16 132/79 97 Room Air Laboratory Results Laboratory Results WBC 2.41 K/ul (4.8-10.8) L 06/16/22 07:03 RBC 4.31 M/uL (4.70-6.10) L 06/16/22 07:03 Hgb 13.4 g/dl (14.0-18.0) L 06/16/22 07:03 Hct 37.9 % (42.0-52.0) L 06/16/22 07:03 MCV 87.9 fL (80.0-100.0) 06/16/22 07:03 MCH 31.1 pg (25.0-34.0) 06/16/22 07:03 MCHC 35.4 g/dL (32.0-36.0) 06/16/22 07:03 RDW Std Deviation 38.9 fL (36.4-46.3) 06/16/22 07:03 RDW Coeff of Yogesh 11.9 % (11.5-14.5) 06/16/22 07:03 Plt Count 220 K/uL (130-400) 06/16/22 07:03 MPV 9.7 fL (9.4-12.4) 06/16/22 07:03 Immature Gran % (Auto) 0.4 % 06/16/22 07:03 Neut % (Auto) 69.7 % 06/16/22 07:03 Lymph % (Auto) 21.6 % 06/16/22 07:03 [place] % (Auto) 7.1 % 06/16/22 07:03 Eos % (Auto) 0.4 % 06/16/22 07:03 Baso % (Auto) 0.8 % 06/16/22 07:03 Neut # (Auto) 1.68 K/uL (1.40-6.50) 06/16/22 07:03 Lymph # (Auto) 0.52 K/uL (1.2-3.4) L 06/16/22 07:03 [place] # (Auto) 0.17 K/uL (0.11-0.59) 06/16/22 07:03 Eos # (Auto) 0.01 K/uL (0-0.50) 06/16/22 07:03 Baso # (Auto) 0.02 K/uL (0-0.2) 06/16/22 07:03 Immature Gran # (Auto) 0.01 K/uL (0.01-0.20) 06/16/22 07:03 RBC Morphology Unremarkable 06/16/22 07:03 Sodium 137 mmol/L (136-145) 06/16/22 07:03 Potassium 3.6 mmol/L (3.5-5.1) 06/16/22 07:03 Chloride 105 mmol/L (98-107) 06/16/22 07:03 Carbon Dioxide 26 mmol/L (21-32) 06/16/22 07:03 Anion Gap 6 (3-11) 06/16/22 07:03 BUN 4 mg/dl (6-23) L 06/16/22 07:03 Creatinine 0.68 mg/dl (0.6-1.4) 06/16/22 07:03 Est Cr Clr Drug Dosing 160.0 ml/min 06/16/22 07:03 Est GFR ( Amer) 142.4 ml/min 06/16/22 07:03 Est GFR (Non-Af Amer) 122.9 ml/min 06/16/22 07:03 BUN/Creatinine Ratio 5.9 (10-20) L 06/16/22 07:03 Glucose 195 mg/dl (70-99(Fasting)) H 06/16/22 07:03 Lactate 1.5 mmol/L (0.4-2.0) 06/15/22 11:38 Calcium 7.7 mg/dl (8.5-10.1) L 06/16/22 07:03 Total Bilirubin 1.0 mg/dl (0.2-1.0) 06/15/22 11:38 AST 37 U/L (13-39) 06/15/22 11:38 ALT 47 U/L (7-52) 06/15/22 11:38 Alkaline Phosphatase 73 U/L (34-104) 06/15/22 11:38 Total Protein 7.9 gm/dl (6.0-8.3) 06/15/22 11:38 Albumin 4.6 gm/dl (3.4-5.0) 06/15/22 11:38 Globulin 3.3 gm/dl (2.5-4.0) 06/15/22 11:38 Albumin/Globulin Ratio 1.4 (0.9-2) 06/15/22 11:38 Procalcitonin 0.27 ng/ml (0-0.5) 06/16/22 07:03 Urine Color Yellow 06/15/22 12:45 Urine Appearance Clear (Clear) 06/15/22 12:45 Urine pH 6.0 (4.5-7.5) 06/15/22 12:45 Ur Specific [place] 1.018 (1.000-1.030) 06/15/22 12:45 Urine Protein Negative (Negative) 06/15/22 12:45 Urine Glucose (UA) Negative (Negative) 06/15/22 12:45 Urine Ketones 3+ (Negative) H 06/15/22 12:45 Urine Blood Negative (Negative) 06/15/22 12:45 Urine Nitrite Negative (Negative) 06/15/22 12:45 Urine Bilirubin Negative (Negative) 06/15/22 12:45 Urine Urobilinogen Negative (Negative) 06/15/22 12:45 Ur Leukocyte Esterase Negative (Negative) 06/15/22 12:45 Adenovirus (PCR) Not Detected (NotDetected) 06/15/22 12:20 B. pertussis DNA (PCR) Not Detected (NotDetected) 06/15/22 12:20 B.parapertussis DNA PCR Not Detected (NotDetected) 06/15/22 12:20 Lyme Disease IgG Ab Negative (Negative) 06/15/22 16:56 Lyme Disease IgM Ab Positive (Negative) A 06/15/22 16:56 C. pneumoniae DNA (PCR) Not Detected (NotDetected) 06/15/22 12:20 Coronavirus OC43 (PCR) Not Detected (NotDetected) 06/15/22 12:20 Coronavirus HKU1 (PCR) Not Detected (NotDetected) 06/15/22 12:20 Coronavirus 229E (PCR) Not Detected (NotDetected) 06/15/22 12:20 SARS-CoV-2 (PCR) Not Detected (NotDetected) 06/15/22 12:20 Coronavirus NL63 (PCR) Not Detected (NotDetected) 06/15/22 12:20 Human Metapneumovir PCR Not Detected (NotDetected) 06/15/22 12:20 Influenza Type A (PCR) Not Detected (NotDetected) 06/15/22 12:20 Influenza Type B (PCR) Not Detected (NotDetected) 06/15/22 12:20 M. pneumoniae (PCR) Not Detected (NotDetected) 06/15/22 12:20 Parainfluenza 1 (PCR) Not Detected (NotDetected) 06/15/22 12:20 Parainfluenza 2 (PCR) Not Detected (NotDetected) 06/15/22 12:20 Parainfluenza 3 (PCR) Not Detected (NotDetected) 06/15/22 12:20 Parainfluenza 4 (PCR) Not Detected (NotDetected) 06/15/22 12:20 RSV (PCR) Not Detected (NotDetected) 06/15/22 12:20 Entero/Rhino (PCR) Not Detected (NotDetected) 06/15/22 12:20 Impressions Chest X-Ray 06/15/22 11:32 XR chest 1V portable HISTORY: fever COMPARISON: Chest 01/19/2021. FINDINGS: The lungs are clear. Cardiac silhouette is normal in size. No pleural effusions. No pneumothorax. IMPRESSION: No acute process. ACT 112: Negative or not required by law. Electronically signed by: Juancarlos Huerta M.D. 06/15/2022 1:15 PM
[2022-06-16] MEDS ORDERED: diphenhydrAMINE Capsule 25 MG CAP PO PRN (13:56)
[2022-06-17 06:55] LABS: Basophils # (auto) 0.02 K/uL (0-0.2); Basophils % (auto) 0.3 %; Eosinophils # (auto) 0.53 K/uL (0-0.50); Eosinophils % (auto) 8.9 %; Hematocrit (blood only) 39.9 % (42.0-52.0); Hemoglobin 14.2 g/dl (14.0-18.0); Immature Granulocytes # (auto) 0.02 K/uL (0.01-0.20); Immature Granulocytes % (auto) 0.3 %; Lymphocytes # (auto) 1.84 K/uL (1.2-3.4); Lymphocytes % (auto) 30.9 %; Mean Corpuscular Hemoglobin 31.8 pg (25.0-34.0); Mean Corpuscular Hgb Conc 35.6 g/dL (32.0-36.0); Mean Corpuscular Volume 89.3 fL (80.0-100.0); Mean Platelet Volume 9.7 fL (9.4-12.4); Monocytes # (auto) 0.58 K/uL (0.11-0.59); Monocytes % (auto) 9.7 %; Neutrophils # (auto) 2.97 K/uL (1.40-6.50); Neutrophils % (auto) 49.9 %; Platelet Count 211 K/uL (130-400); RDW Standard Deviation 39.2 fL (36.4-46.3); Red Blood Count 4.47 M/uL (4.70-6.10); White Blood Count 5.96 K/ul (4.8-10.8)
[2022-06-17 07:21] LABS: BUN Creatinine Ratio 10.4 (10-20); Calcium 8.3 mg/dl (8.5-10.1); Creatinine Clr Calc Pharmacy 162.3 ml/min; Est GFR (African American) 143.3 ml/min; Est GFR (Non-African American) 123.6 ml/min; Potassium 3.7 mmol/L (3.5-5.1)
[2022-06-17] MEDS: LOSARTAN POTASSIUM 50 MG TAB PO SCH (08:29)
[2022-06-17] MEDS: DOXYCYCLINE HYCLATE 100 MG CAP PO SCH (08:29)
--- NOTE | 2022-06-17 12:22 | Discharge Summary ---
Date of Service June 17, 2022 Admission HPI Per Admitting Provider Patient is 36-year-old male with PMH hypertension presented to ER with c/o rash today. Seen in ER 06/05/2022 for right elbow redness and swelling. There was consideration for septic joint and considered arthrocentesis however patient deferred at the time. Patient was treated with Keflex and Bactrim. Today is last day of the course. He states approximately 2 days after taking antibiotics had significant improvement of right elbow swelling and redness. He reports redness had extended down his entire forearm which had started to clear. He reports complete resolution of erythema and edema. No longer has elbow di scomfort and is able to fully flex and extend elbow without pain. States initially was checking his temperatures during the initial course of antibiotics but has since stopped. Yesterday started to feel ill with decreased appetite and a little lethargy. This morning woke up feeling warm and he noticed a diffuse rash to neck chest and back, bilateral upper and lower extremities. Denies any pruritus or pain to rash. Denies any blisters. Denies diaphoresis, N/V/D/C, RAMIREZ, dizziness, syncope, vision changes, neck pain, CP, SOB, orthopnea, palpitations, cough, sore throat, choking, lip or tongue edema, dysphagia, otalgia, rhinorrhea, abdominal pain, paresthesias, weakness, extremity weakness, extremity edema, rashes, urinary symptoms. Admission Exam Per Admitting Provider General: no distress, WDWN Head: normocephalic, atraumatic Eyes: PERRL, EOM's intact, conjunctiva non-injected, anicteric ENT: normal inspection external ears, nose, mucous membranes moist, no rash to oropharynx noted, no uvula edema no tongue edema no lip edema Neck: supple, trachea midline Lungs: clear, no respiratory distress, no wheezing/rhonchi/rales CV: RRR, no murmur, no pretibial edema Abd: normal BS, soft, non-tender Ext: no cyanosis, no calf tenderness; RUE: Posterior elbow with faint edema over olecranon process, no warmth, no tenderness to palpation, full range of motion without reproduce tenderness Neuro: A&O x 3, no focal deficits noted, normal affect Skin: + Diffuse erythematous macular papular rash neck, chest, abdomen, back, bilateral upper and lower extremities, no rash noted to palms of hands or soles of feet, warm, dry. No bullous lesions. Principal Diagnosis Drug rash Fever Possible Lyme disease Discharge Exam Constitutional: WD/WN, vitals as above, NAD, sitting up in bed, pleasant, conversing easily Respiratory: normal respiratory effort, lungs clear to auscultation, no wheeze, rales, rhonchi. Normal insp/exp effort, no accessory muscle use Cardiovascular: RRR, no murmur, no edema Vessels: no JVD or carotid bruit Chest: normal inspection of chest Abdomen: normal bowel sounds, soft, nontender, no hepatosplenomegaly Musculoskeletal: no cyanosis or clubbing, extremities motor strength 5/5 Skin: Significant improvement in the maculopapular rash. No rash noted on the back. Neurologic: PERRL, EOMI, accommodation nl, no face palsy, no dysarthria CN's II- XI intact bilaterally and moves all extremities Psychiatric: A+Ox3, euthymic affect Lymphatic: no cervical or axillary lymphadenopathy : deferred Discharge Data Allergies Allergy/AdvReac Type Severity Reaction Status Date / Time sulfamethoxazole Allergy Rash Verified 06/15/22 17:30 [From Bactrim] trimethoprim [From Bactrim] Allergy Rash Verified 06/15/22 17:30 Consultations 06/15/22 15:18 ED Decision to Admit Stat Hospital Course (1) Maculopapular rash: (2) Drug eruption: (3) Fever: (4) Lyme disease: (5) HTN (hypertension): (6) Hyponatremia: Plan Patient is a 36-year-old male with possible history of hypertension who presented to the ED for evaluation of rash. Patient was recently treated for right arm cellulitis with 10-day course Bactrim and Keflex. Patient started to notice maculopapular rash on his neck, chest, back and bilateral upper and lower extremity. He denied any pain or pruritus with the rash. In the ED, he was found to be febrile with Tmax of 38.9 C. He was hemodynamically stable and saturating well in room air. He was admitted to telemetry floor for further monitoring and treatment. The likely cause for the rash was thought to be Bactrim which was stopped. Patient was treated with antihistamine as needed. Lyme IgM was found to be positive for which he was started on doxycycline. Confirmatory test of the Lyme disease was still pending. Over the course of the hospitalization, his rash started to resolve. He remained afebrile for more than 24 hours. His blood culture was negative for 1 day. He was given 8 more days of doxycycline to complete 10-day course for Lyme disease pending confirmatory test results. Bactrim was added to allergy list. Outpatient follow-up with his primary care to be set up sometime next week. Total Time Total Time Spent Total Time Spent (In Minutes): 40 Total Time Includes: Examination of the Patient, Discharge Planning, Medication Reconciliation, Communication With Other Providers and Other Discharge Plan Discharge Items Patient Disposition: Home - Self-Care Reason For Visit: FEVER Discharge Diagnosis: Drug rash Possible Lyme disease Condition on Discharge: Good Activity: Resume your previous activity Non-emergency contact: Primary Care Provider Call non-emergency contact if: you have any medication questions and your s ymptoms worsen Follow-up/Referrals: Floridalma Noble DO [Primary Care Provider] - Diet: Regular Addtl Attending Provider Instructions: You were admitted to the hospital with rash and fever. The most likely cause for the rash is due to Bactrim. Lyme antibody test was found to be positive during your hospitalization. You are prescribed doxycycline 100 mg twice daily for 8 more days. The confirmatory results are still pending An appointment will be set up for you with your primary care doctor sometime next week. Pending Studies at Discharge: Yes Studies:: Lyme disease confirmatory test. Stand-Alone Forms: [employer], Smoking Cessation Medications and DC Order Prescriptions: New doxycycline hyclate 100 mg Capsule 100 mg PO BID 8 Days Qty: 16 0RF diphenhydramine HCl [Benadryl] 25 mg Capsule 25 mg PO Q6H PRN (Reason: allergic reaction) Qty: 10 0RF Continued losartan 50 mg tablet 50 mg PO QAM Discharge Orders: Discharge Order (Routine); Ordered 06/17/22 Ordered By: Tim Ochoa Admission Data Admit Date/Time: 06/15/22 16:08 Attending Provider: Tim Ochoa Admit Provider: Lisandra Bruner Primary Care Provider: Floridalma Noble Other Providers: Lisandra Bruner Other Interventions: Discharge Summary Assessment (RN) Last Done: 06/17/22 09:45
[2022-06-18 14:06] LABS: 18KDIGG Band NON-REACTIVE; 23KDIGG Band NON-REACTIVE; 23KDIGM Band NON-REACTIVE; 28KDIGG Band NON-REACTIVE; 30KDIGG Band NON-REACTIVE; 39KDIGG Band REACTIVE; 39KDIGM Band NON-REACTIVE; 41KDIGG Band NON-REACTIVE; 41KDIGM Band NON-REACTIVE; 45KDIGG Band NON-REACTIVE; 58KDIGG Band NON-REACTIVE; 66KDIGG Band NON-REACTIVE; 93KDIGG Band NON-REACTIVE; Lyme Antibodies, WB IgG NEGATIVE (NEGATIVE); Lyme Antibodies, WB IgM NEGATIVE (NEGATIVE)
== END 2022-06-17 10:01 | disposition home or self-care (01) | DRG 607 ==
LOC: ED 10:20 → SUATTDRO 16:08 → EDINP 16:08 → 2N 19:34